=== PATIENT | male | born 1955 | race Caucasian/White ===

== ENCOUNTER → 2020-08-12 09:11 | Outpatient (BNVA) | payer MEDICARE, BC, SELFPAY | PROVIDERS: PCP Internal Medicine; Visit Provider Urology | DX: R97.21 Rising PSA following treatment for malignant neoplasm of prostate (principal); C61 Malignant neoplasm of prostate; N52.9 Male erectile dysfunction, unspecified | CPT/HCPCS: 99212 ==

== ENCOUNTER → 2021-02-10 08:49 | Outpatient (BNVA) | payer MEDICARE, BC, SELFPAY | PROVIDERS: PCP Internal Medicine; Visit Provider Urology | CPT/HCPCS: Q3014 ==

== ENCOUNTER → 2022-03-21 09:59 | Outpatient (BNVA) | payer MEDICARE, BC, SELFPAY | PROVIDERS: PCP Internal Medicine; Visit Provider Urology | DX: N32.0 Bladder-neck obstruction (principal); N52.9 Male erectile dysfunction, unspecified; R97.21 Rising PSA following treatment for malignant neoplasm of prostate; C61 Malignant neoplasm of prostate | CPT/HCPCS: 99212 ==

== ENCOUNTER → 2022-09-20 08:59 | Outpatient (BNVA) | payer MEDICARE, BC, SELFPAY | PROVIDERS: PCP Internal Medicine; Visit Provider Urology | DX: C61 Malignant neoplasm of prostate (principal); R97.21 Rising PSA following treatment for malignant neoplasm of prostate | CPT/HCPCS: Q3014 ==

== ENCOUNTER → 2023-01-16 14:59 | Outpatient (BNVA) | payer MEDICARE, BC, SELFPAY | PROVIDERS: PCP Internal Medicine; Visit Provider Urology | DX: N32.0 Bladder-neck obstruction (principal); C61 Malignant neoplasm of prostate; R97.21 Rising PSA following treatment for malignant neoplasm of prostate; N52.1 Erectile dysfunction due to diseases classified elsewhere | CPT/HCPCS: 99212 ==

== ENCOUNTER 2023-05-11 12:36 | Outpatient (REF) | payer MEDICARE, BC, SELFPAY ==
[2023-05-11 15:03] LABS: Prostate Specific Antigen 0.27 ng/mL (<0.05-4.0)
== END 2023-05-11 12:37 | disposition home or self-care (01) ==
LOC: HO.10HDL 12:36
PROVIDERS: Visit Provider Urology
DX: C61 Malignant neoplasm of prostate (principal); Z12.5 Encounter for screening for malignant neoplasm of prostate
CPT/HCPCS: 36415; 84153

== ENCOUNTER 2023-05-16 10:37 | Outpatient (AMB) | payer MEDICARE, BC, SELFPAY ==
--- NOTE | 2023-05-16 10:38 | A.OFFVIS_ITS ---
Intake Intake Visit Reasons: 4m/PSA(set) Intake Note: Patient is present for Telephone PSA Urology Med: NONE Antibiotic Allergy:NONE Blood Thinner:NONE [facility]: [facility] Allergies zolpidem [Ambien] Allergy (Unknown, Verified 05/16/23 10:38) unknown Medication List - Last Reconciled 05/16/23 by Josiah Olivas MD acetaminophen PO atorvastatin 20 mg PO DAILY escitalopram oxalate 3 mg PO Q OTHER DAY PRN escitalopram oxalate 20 mg PO DAILY HPI HPI Comments History of Present Illness Details Bob is a very pleasant male. He is a patient of Dr. Jefferson. He is seen for the following urologic conditions. - Prostate cancer - Bladder neck contraction - Erectile dysfunction - has progressive Alzheimer's Telemedicine Evaluation 15 min Consultation [employer] PSA 0.27 Continue to follow q4m Will need PSMA PET-CT scan Discussed Audelia for end of day dribbling Prostate cancer: Intermediate risk. Initial therapy radical prostatectomy 2013 Prostate cancer was diagnosed Dr Mayfield 2013. Diagnosis was reached by needle biopsy, for elevated PSA. The Elisa grade is 3+4 = 7, at surgery. TNM Classification of Malignant Tumours (TNM) T2b. The D'Keaton (NCCN) risk category is Intermediate Risk (PSA 10-20, Gl 7, T2) Initial therapy included Primary treatment, Prostatectomy (RRP/Robotic), Additional treatment, Observation. Recent labs included a PSA (prostate-specific antigen) 11/30 < 0.1 12/01 < 0.1, 05/31 < 0.1, 11/02 < 0.1, 11/03 0.1, 08/03 0.1, 01/02 0.11, 04/05 0.1, 09/05 0.2, 01/04 0.2, 05/06 0.27 Associated conditions erectile dysfunction Yes Erectile DESHAUN Score 12 Therapeutic plan: Continue with surveillance Urethral Strictures: Urination effective. The stricture was diagnosed Oct 2014. Bladder neck contracture incised [facility] Medical History Atrial fibrillation Colonic polyp Erectile dysfunction History of kidney stones Hyperlipidemia Mitral valve regurgitation Prostate cancer Urethral stricture Surgical History History of surgery Review of Systems Const All systems reviewed & are unremarkable except as noted in HPI and below Reports no additional complaints Resp Reports no additional complaints GI Reports no additional complaints Reports as per HPI Musc Reports no additional complaints Physical Exam Telemedicine evaluation Appropriate responses Regular breathing rate and rhythm HEENT Head: Yes normal to inspection Ears: hearing grossly normal bilaterally Eyes General: appearance normal, both eyes and all related structures Neck Neck: Yes normal visual inspection Chest Chest palpation & inspection: normal inspection of the chest Resp Effort & Inspection: normal respiratory effort and able to speak in complete sentences Assessment & Plan Assessment & Plan (1) Rising PSA following treatment for malignant neoplasm of prostate: Comment: 0.1 Code(s): R97.21 - Rising PSA following treatment for malignant neoplasm of prostate (2) Prostate cancer: Comment: [facility] 2006 Code(s): C61 - Malignant neoplasm of prostate Plan 4m f/u PSA tele Orders: Orders Prostate Specific Antigen 4 Months R97.21 - Rising PSA following treatment for malignant neoplasm of prostate Patient Instructions: Imaging studies, laboratory and physical exam results were discussed and reviewed in detail. No major barriers to patient understanding were identified. An opportunity to ask questions regarding the treatment plan was provided. All questions were answered. The patient expressed understanding and agreement with the above treatment plan. The patient is aware they should contact our office by phone for worsening of their current condition or the appearance of new urologic symptoms. Compliance is encouraged with any medications and followup testing that is ordered. It is a privilege to participate in the urologic care of your patient. If you have any questions or concerns regarding treatment for the above conditions, or other urologic issues, please do not hesitate to contact me. The office telephone contact is [phone]. This note is constructed using voice recognition software. While every effort has been made to ensure accuracy blast furnace tender errors may have been included. Yours sincerely, Dr Josiah Olivas MD, [facility] - Urology Providers of Expert, Compassionate Care for the Genitourinary System Telehealth Telehealth Location of provider rendering services: practice address Location of patient: address on file Patient Identification confirmed using: Name, : Yes Telehealth method: video Patient verbally consented to treatment: Yes Patient verbally consented to billing insurance company: Yes Patient informed of any privacy concerns related to visit: Yes Coding Level of Care Code Tele Est Pt Level 3 (41941) Diagnoses Rising PSA following treatment for malignant neoplasm of prostate R97.21 Prostate cancer C61
== END 2023-05-16 11:27 | disposition home or self-care (01) ==
LOC: HO.HUSH 10:37
PROVIDERS: PCP Internal Medicine; Visit Provider Urology
DX: R97.21 Rising PSA following treatment for malignant neoplasm of prostate (principal); C61 Malignant neoplasm of prostate
CPT/HCPCS: 99213

== ENCOUNTER → 2023-05-16 10:37 | Outpatient (BNVA) | payer MEDICARE, BC, SELFPAY | PROVIDERS: PCP Internal Medicine; Visit Provider Urology | DX: C61 Malignant neoplasm of prostate (principal); R97.21 Rising PSA following treatment for malignant neoplasm of prostate; N32.0 Bladder-neck obstruction; N52.1 Erectile dysfunction due to diseases classified elsewhere; Z90.79 Acquired absence of other genital organ(s) | CPT/HCPCS: Q3014 ==

== ENCOUNTER 2023-09-12 10:58 | Outpatient (REF) | payer MEDICARE, BC, SELFPAY ==
[2023-09-12 14:20] LABS: Prostate Specific Antigen 0.36 ng/mL (<0.05-4.0)
== END 2023-09-12 10:59 | disposition home or self-care (01) ==
LOC: HO.10HDL 10:58
PROVIDERS: Visit Provider Urology
DX: Z12.5 Encounter for screening for malignant neoplasm of prostate (principal); R97.21 Rising PSA following treatment for malignant neoplasm of prostate
CPT/HCPCS: 36415; 84153

== ENCOUNTER 2023-09-18 11:40 | Outpatient (AMB) | payer MEDICARE, BC, SELFPAY ==
--- NOTE | 2023-09-18 11:52 | MHC.OFFVIS ---
Intake Intake Visit Reasons: 4m/PSA(set) Intake Note: Patient is Present for Follow Up PSA Urology Medication: None Antibiotic Allergies:None Blood Thinners: None Allergies zolpidem [Ambien] Allergy (Unknown, Verified 05/16/23 10:38) unknown HPI HPI Comments History of Present Illness Details Bob is a very pleasant male. He is a patient of Dr. Jefferson. He is seen for the following urologic conditions. - Prostate cancer - Bladder neck contraction - Erectile dysfunction - has progressive Alzheimer's PSA 0.36 Continuing to rise Recommend therapy Lives in [place] Can receive therapy through [facility]. They have an office in [place]. Dr Juarez. He is primary caregiver for his with Alzheimer's Discussed Audelia for end of day drmariya Prostate cancer: Intermediate risk. Initial therapy radical prostatectomy 2013 Prostate cancer was diagnosed Dr Mayfield 2013. Diagnosis was reached by needle biopsy, for elevated PSA. The Auburn grade is 3+4 = 7, at surgery. TNM Classification of Malignant Tumours (TNM) T2b. The D'Keaton (NCCN) risk category is Intermediate Risk (PSA 10-20, Gl 7, T2) Initial therapy included Primary treatment, Prostatectomy (RRP/Robotic), Additional treatment, Observation. Recent labs included a PSA (prostate-specific antigen) 11/30 < 0.1 12/01 < 0.1, 05/31 < 0.1, 11/02 < 0.1, 11/03 0.1, 08/03 0.1, 01/02 0.11, 04/05 0.1, 09/05 0.2, 01/04 0.2, 05/06 0.27. 09/06 0.36 Associated conditions erectile dysfunction Yes Erectile DESHAUN Score 12 Therapeutic plan: Continue with surveillance Urethral Strictures: Urination effective. The stricture was diagnosed Oct 2014. Bladder neck contracture incised [facility] Medical History Atrial fibrillation Colonic polyp Erectile dysfunction History of kidney stones Hyperlipidemia Mitral valve regurgitation Prostate cancer Urethral stricture Surgical History History of surgery Review of Systems Const Denies chills and Denies fever(s) Card Reports no additional complaints and Denies syncope Resp Denies cough GI Denies abdominal pain and Denies heartburn Reports as per HPI and Denies change in libido Neuro Denies syncope Psych Denies change in libido Endo Denies change in libido Physical Exam Const General: cooperative, healthy appearing, comfortable and no acute distress Orientation/consciousness: patient oriented x3 HEENT Face and sinus: Yes normal facial exam Mouth: moist mucous membranes Neck Neck: Yes normal visual inspection, Yes full ROM and Yes trachea midline Chest Chest palpation & inspection: normal inspection of the chest Resp Effort & Inspection: normal respiratory effort, able to speak in complete sentences and no respiratory distress GI Inspection: Yes normal to inspection Back/Spine/Pelvis Cervical Spine: normal cervical lordosis Thoracic/Lumbar Spine: thoracic and lumbar spine normal to inspection Skin General skin exam: no rashes or lesions noted Neuro General: patient oriented x3, gait normal, tone normal and moves all extremities Extrem General: Yes normal to inspection and Yes capillary refill normal Assessment & Plan Assessment & Plan (1) Biochemically recurrent castration-sensitive adenocarcinoma of prostate: Code(s): C61 - Malignant neoplasm of prostate; R97.21 - Rising PSA following treatment for malignant neoplasm of prostate; Z19.1 - Hormone sensitive malignancy status Plan Salvage radiation GnRH injection for Elisa 7 disease short term Referral to Radiation Oncology - [place] [facility] Orders: Referrals Radiation Oncology Referral C61 - Malignant neoplasm of prostate Patient Instructions: Imaging studies, laboratory and physical exam results were discussed and reviewed in detail. No major barriers to patient understanding were identified. An opportunity to ask questions regarding the treatment plan was provided. All questions were answered. The patient expressed understanding and agreement with the above treatment plan. The patient is aware they should contact our office by phone for worsening of their current condition or the appearance of new urologic symptoms. Compliance is encouraged with any medications and followup testing that is ordered. It is a privilege to participate in the urologic care of your patient. If you have any questions or concerns regarding treatment for the above conditions, or other urologic issues, please do not hesitate to contact me. The office telephone contact is [phone]. This note is constructed using voice recognition software. While every effort has been made to ensure accuracy assistant guest services manager errors may have been included. Yours sincerely, Dr Josiah Olivas MD, [facility] - Urology Providers of Expert, Compassionate Care for the Genitourinary System Coding Level of Care Code Est Pt Level 4 (20121) Diagnoses Biochemically recurrent castration-sensitive adenocarcinoma of prostate C61; R97.21; Z19.1
== END 2023-09-18 12:16 | disposition home or self-care (01) ==
PROVIDERS: PCP Internal Medicine; Visit Provider Urology
DX: C61 Malignant neoplasm of prostate (principal); R97.21 Rising PSA following treatment for malignant neoplasm of prostate; Z19.1 Hormone sensitive malignancy status
CPT/HCPCS: 99214

== ENCOUNTER → 2023-09-18 11:40 | Outpatient (BNVA) | payer MEDICARE, BC, SELFPAY | PROVIDERS: PCP Internal Medicine; Visit Provider Urology | DX: C61 Malignant neoplasm of prostate (principal); R97.21 Rising PSA following treatment for malignant neoplasm of prostate; Z19.1 Hormone sensitive malignancy status; N52.1 Erectile dysfunction due to diseases classified elsewhere; N32.0 Bladder-neck obstruction | CPT/HCPCS: 99212 ==

== ENCOUNTER 2023-10-03 08:50 | Outpatient (AMB) | payer MEDICARE, BC, SELFPAY ==
--- NOTE | 2023-10-03 08:59 | AM.OFFVISNUR ---
Intake Intake Visit Reasons: [facility](No PA Needed) Allergies zolpidem [Ambien] Allergy (Unknown, Verified 05/16/23 10:38) unknown Office Meds Eligard (6 month) 45 mg (6 month) subcutaneous syringe Performing Provider: Josiha Olivas MD [facility] Administered by: Ingrid Dye RN on 10/03/23 08:59 Dose Route Admin Location Dispensed Lot Number Expiration Date [facility] Digital Strategist Senior Manager 45 mg subcut left arm 45 mg [id number] 10/15/24 79408-614-82 [employer]. Coding Assessment & Plan Assessment & Plan Orders: Orders AMB Leuprolide Injection - Practice Supplied Today C61 - Malignant neoplasm of prostate
== END 2023-10-03 09:07 | disposition home or self-care (01) ==
PROVIDERS: PCP Internal Medicine; Visit Provider Urology
DX: C61 Malignant neoplasm of prostate (principal)

== ENCOUNTER → 2023-10-03 08:50 | Outpatient (BNVA) | payer MEDICARE, OTHER, BC, SELFPAY | PROVIDERS: PCP Internal Medicine; Visit Provider Urology | DX: C61 Malignant neoplasm of prostate (principal) | CPT/HCPCS: 96402; J9217 ==

== ENCOUNTER 2023-12-20 10:31 | Outpatient (AMB) | payer MEDICARE, BC, SELFPAY ==
--- NOTE | 2023-12-20 10:49 | A.OFFVIS_ITS ---
Intake Intake Visit Reasons: 3M(Radiation-23 Treatments)Confirmed Intake Note: Patient presents today for a follow-up on radiation treatments Meds- None Allergies to Antibiotic- No Known Allergies Blood Thinner- None Buying Agent Required: No Accompanied by: Self / Same As Patient Allergies zolpidem [Ambien] Allergy (Unknown, Verified 12/20/23 10:50) unknown Medication List - Last Reconciled 12/20/23 by Josiah Olivas MD acetaminophen PO atorvastatin 20 mg PO DAILY escitalopram oxalate 3 mg PO Q OTHER DAY PRN escitalopram oxalate 20 mg PO DAILY gabapentin 300 mg PO BEDTIME 30 days HPI HPI Comments History of Present Illness Details Bob is a very pleasant male. He is a patient of Dr. Jefferson. He is seen for the following urologic conditions. - Prostate cancer - Bladder neck contraction - Erectile dysfunction - has progre ssive Alzheimer's Receiving therapy through [facility]. They have an office in [place]. Dr Juarez. Have 2 weeks left in external beam radiation Starting to have some urinary urgency and frequency Offered alpha-onel He will only need a single GnRH shot Three-month follow-up lab work [facility] 10/06 Prostate cancer: Intermediate risk. Initial therapy radical prostatectomy 2013 Prostate cancer was diagnosed Dr Mayfield 2013. Diagnosis was reached by needle biopsy, for elevated PSA. The Elisa grade is 3+4 = 7, at surgery. TNM Classification of Malignant Tumours (TNM) T2b. The D'Keaton (NCCN) risk category is Intermediate Risk (PSA 10-20, Gl 7, T2) Initial therapy included Primary treatment, Prostatectomy (RRP/Robotic), Additional treatment, Observation. Recent labs included a PSA (prostate-specific antigen) 11/30 < 0.1 12/01 < 0.1, 05/31 < 0.1, 11/02 < 0.1, 11/03 0.1, 08/03 0.1, 01/02 0.11, 04/05 0.1, 11/22 0.2, 01/04 0.2, 05/06 0.27. 09/06 0.36 Associated conditions erectile dysfunction Yes Erectile DESHAUN Score 12 Therapeutic plan: Continue with surveillance Urethral Strictures: Urination effective. The stricture was diagnosed Oct 2014. Bladder neck contracture incised [facility] Medical History History of kidney stones Atrial fibrillation Colonic polyp Mitral valve regurgitation Hyperlipidemia Erectile dysfunction Urethral stricture Prostate cancer Surgical History History of surgery Review of Systems Const Denies chills and Denies fever(s) Card Reports no additional complaints and Denies syncope Resp Denies cough GI Denies abdominal pain and Denies heartburn Reports as per HPI and Denies change in libido Neuro Denies syncope Psych Denies change in libido Endo Denies change in libido Physical Exam Const General: cooperative, healthy appearing, comfortable and no acute distress Orientation/consciousness: patient oriented x3 HEENT Face and sinus: Yes normal facial exam Mouth: moist mucous membranes Neck Neck: Yes normal visual inspection, Yes full ROM and Yes trachea midline Chest Chest palpation & inspection: normal inspection of the chest Resp Effort & Inspection: normal respiratory effort, able to speak in complete sentences and no respiratory distress GI Inspection: Yes normal to inspection Back/Spine/Pelvis Cervical Spine: normal cervical lordosis Thoracic/Lumbar Spine: thoracic and lumbar spine normal to inspection Skin General skin exam: no rashes or lesions noted Neuro General: patient oriented x3, gait normal, tone normal and moves all extremities Extrem General: Yes normal to inspection and Yes capillary refill normal Assessment & Plan Assessment & Plan (1) Biochemically recurrent castration-sensitive adenocarcinoma of prostate: Code(s): C61 - Malignant neoplasm of prostate; R97.21 - Rising PSA following treatment for malignant neoplasm of prostate; Z19.1 - Hormone sensitive malignancy status (2) Prostate cancer: Comment: [facility] 2006 Code(s): C61 - Malignant neoplasm of prostate Plan Three-month follow-up labs Orders: Orders Prostate Specific Antigen 3 Months C61 - Malignant neoplasm of prostate, R97.21 - Rising PSA following treatment for malignant neoplasm of prostate, Z19.1 - Hormone sensitive malignancy status Patient Instructions: Imaging studies, laboratory and physical exam results were discussed and reviewed in detail. No major barriers to patient understanding were identified. An opportunity to ask questions regarding the treatment plan was provided. All questions were answered. The patient expressed understanding and agreement with the above treatment plan. The patient is aware they should contact our office by phone for worsening of their current condition or the appearance of new urologic symptoms. Compliance is encouraged with any medications and followup testing that is ordered. It is a privilege to participate in the urologic care of your patient. If you have any questions or concerns regarding treatment for the above conditions, or other urologic issues, please do not hesitate to contact me. The office telephone contact is [phone]. This note is constructed using voice recognition software. While every effort has been made to ensure accuracy insulation worker apprentice errors may have been included. Yours sincerely, Dr Josiah Olivas MD, [facility] - Urology Providers of Expert, Compassionate Care for the Genitourinary System Coding Level of Care Code Est Pt Level 3 (91844) Diagnoses Biochemically recurrent castration-sensitive adenocarcinoma of prostate C61; R97.21; Z19.1 Prostate cancer C61
== END 2023-12-20 11:20 | disposition home or self-care (01) ==
PROVIDERS: PCP Internal Medicine; Visit Provider Urology
DX: C61 Malignant neoplasm of prostate (principal); R97.21 Rising PSA following treatment for malignant neoplasm of prostate; Z19.1 Hormone sensitive malignancy status
CPT/HCPCS: 99213

== ENCOUNTER → 2023-12-20 10:31 | Outpatient (BNVA) | payer MEDICARE, BC, SELFPAY | PROVIDERS: PCP Internal Medicine; Visit Provider Urology | DX: C61 Malignant neoplasm of prostate (principal); R97.21 Rising PSA following treatment for malignant neoplasm of prostate; Z19.1 Hormone sensitive malignancy status | CPT/HCPCS: 99212 ==

== ENCOUNTER 2024-02-08 10:35 | Outpatient (REF) | payer MEDICARE, BC, SELFPAY ==
[2024-02-08 12:49] LABS: Prostate Specific Antigen < 0.10 ng/mL (<0.05-4.0)
== END 2024-02-08 10:36 | disposition home or self-care (01) ==
LOC: HO.10HDL 10:35
PROVIDERS: Visit Provider Radiology Therapeutic Radiology
DX: C61 Malignant neoplasm of prostate (principal); Z12.5 Encounter for screening for malignant neoplasm of prostate
CPT/HCPCS: 36415; 84153

== ENCOUNTER 2024-04-07 12:56 | Outpatient (REF) | payer MEDICARE, BC, SELFPAY ==
[2024-04-07 14:22] LABS: Prostate Specific Antigen < 0.10 ng/mL (<0.05-4.0)
== END 2024-04-07 12:57 | disposition home or self-care (01) ==
LOC: HO.10HDL 12:56
PROVIDERS: Visit Provider Urology
DX: C61 Malignant neoplasm of prostate (principal); R97.21 Rising PSA following treatment for malignant neoplasm of prostate; Z19.1 Hormone sensitive malignancy status; Z12.5 Encounter for screening for malignant neoplasm of prostate
CPT/HCPCS: 36415; 84153

== ENCOUNTER 2024-04-11 09:23 | Outpatient (AMB) | payer MEDICARE, BC, SELFPAY ==
--- NOTE | 2024-04-11 09:19 | MHC.OFFVIS ---
Intake Visit Reasons: 3m/PSA(set) Intake Note: Patient is present for 3 month f/u and PSA Urology Medication:gabapentin Antibiotic Allergy:none Blood Thinner:none Housekeeping/Laundry Required: No Allergies zolpidem [Ambien] Allergy (Unknown, Verified 04/11/24 09:20) unknown Medication List - Last Reconciled 04/11/24 by Josiah Olivas MD acetaminophen PO atorvastatin 20 mg PO DAILY escitalopram oxalate 3 mg PO Q OTHER DAY PRN escitalopram oxalate 20 mg PO DAILY gabapentin 300 mg PO BEDTIME 90 days HPI Comments Details: Bob is a very pleasant male. He is a patient of Dr. Jefferson. He is seen for the following urologic conditions. - Prostate cancer - Bladder neck contraction - Erectile dysfunction - has progressive Alzheimer's Telemedicine Evaluation 15 min Consultation test company [employer] Video attempted Discussed lab results. Reading is undetectable. Will check ultrasensitive in 3 months. Joseluis did say he would coughed up phlegm with blood recently. Encouraged to follow-up with primary care. 04/07 - Completed external beam radiation through [facility] at [place] with Dr Juarez PSA <0.1 GnRH 10/06 Prostate cancer: Intermediate risk. Initial therapy radical prostatectomy 2013 Prostate cancer was diagnosed Dr Mayfield 2013. Diagnosis was reached by needle biopsy, for elevated PSA. The Elisa grade is 3+4 = 7, at surgery. TNM Classification of Malignant Tumours (TNM) T2b. The D'Keaton (NCCN) risk category is Intermediate Risk (PSA 10-20, Gl 7, T2) Initial therapy included Primary treatment, Prostatectomy (RRP/Robotic), Additional treatment, Observation. Recent labs included a PSA (prostate-specific antigen) 11/30 < 0.1 12/01 < 0.1, 05/31 < 0.1, 11/02 < 0.1, 11/03 0.1, 08/03 0.1, 01/02 0.11, 04/05 0.1, 09/05 0.2, 01/04 0.2, 05/06 0.27. 09/06 0.36 Associated conditions erectile dysfunction Yes Erectile DESHAUN Score 12 Therapeutic plan: Continue with surveillance Urethral Strictures: Urination effective. The stricture was diagnosed Oct 2014. Bladder neck contracture incised [facility] Medical History History of kidney stones Atrial fibrillation Colonic polyp Mitral valve regurgitation Hyperlipidemia Erectile dysfunction Urethral stricture Prostate cancer Surgical History History of surgery Review of Systems Const All systems reviewed & are unremarkable except as noted in HPI and below Reports no additional complaints Resp Reports no additional complaints GI Reports no additional complaints Reports as per HPI Musc Reports no additional complaints Physical Exam Telemedicine evaluation Appropriate responses Regular breathing rate and rhythm HEENT Head: Yes normal to inspection Ears: hearing grossly normal bilaterally Eyes General: appearance normal, both eyes and all related structures Neck Neck: Yes normal visual inspection Chest Chest palpation & inspection: normal inspection of the chest Resp Effort & Inspection: normal respiratory effort and able to speak in complete sentences Telehealth Telehealth Location of provider rendering services: practice address Location of patient: address on file Patient Identification confirmed using: Name, : Yes Telehealth method: voice only Patient verbally consented to treatment: Yes Patient verbally consented to billing insurance company: Yes Patient informed of any privacy concerns related to visit: Yes Assessment & Plan Assessment & Plan (1) Prostate cancer: Comment: [facility] 2006 Code(s): C61 - Malignant neoplasm of prostate Category: Medical (2) Biochemically recurrent castration-sensitive adenocarcinoma of prostate: Code(s): C61 - Malignant neoplasm of prostate; R97.21 - Rising PSA following treatment for malignant neoplasm of prostate; Z19.1 - Hormone sensitive malignancy status Category: Medical Plan Three-month follow-up ultrasound answered PSA Orders: Orders PSA, Ultra Sensitive 3 Months C61 - Malignant neoplasm of prostate Patient Instructions: Imaging studies, laboratory and physical exam results were discussed and reviewed in detail. No major barriers to patient understanding were identified. An opportunity to ask questions regarding the treatment plan was provided. All questions were answered. The patient expressed understanding and agreement with the above treatment plan. The patient is aware they should contact our office by phone for worsening of their current condition or the appearance of new urologic symptoms. Compliance is encouraged with any medications and followup testing that is ordered. It is a privilege to participate in the urologic care of your patient. If you have any questions or concerns regarding treatment for the above conditions, or other urologic issues, please do not hesitate to contact me. The office telephone contact is [phone]. This note is constructed using voice recognition software. While every effort has been made to ensure accuracy bath mix operator errors may have been included. Yours sincerely, Dr Josiah Olivas MD, [facility] - Urology Providers of Expert, Compassionate Care for the Genitourinary System Coding Level of Care Code Tele Est Pt Level 3 (94920) Complex EM visit Add On G2211 Diagnoses Prostate cancer C61 Biochemically recurrent castration-sensitive adenocarcinoma of prostate C61; R97.21; Z19.1
== END 2024-04-11 10:05 | disposition home or self-care (01) ==
LOC: HO.HUSH 09:23
PROVIDERS: PCP Internal Medicine; Visit Provider Urology
DX: C61 Malignant neoplasm of prostate (principal); R97.21 Rising PSA following treatment for malignant neoplasm of prostate; Z19.1 Hormone sensitive malignancy status
CPT/HCPCS: 99442

== ENCOUNTER → 2024-04-11 09:23 | Outpatient (BNVA) | payer MEDICARE, BC, SELFPAY | PROVIDERS: PCP Internal Medicine; Visit Provider Urology ==

== ENCOUNTER 2024-07-02 09:35 | Outpatient (REF) | payer MEDICARE, BC, SELFPAY ==
[2024-07-09 16:17] LABS: PSA, Ultra Sensitive <0.02 ng/mL
== END 2024-07-02 09:36 | disposition home or self-care (01) ==
LOC: HO.10HDL 09:35
PROVIDERS: Visit Provider Urology
DX: Z12.5 Encounter for screening for malignant neoplasm of prostate (principal); C61 Malignant neoplasm of prostate
CPT/HCPCS: 36415; 84153

== ENCOUNTER 2024-07-11 11:48 | Outpatient (AMB) | payer MEDICARE, BC, SELFPAY ==
--- NOTE | 2024-07-11 11:50 | MHC.OFFVIS ---
Intake Visit Reasons: 3M Follow Up- PSA(pending) Intake Note: Patient is present for 3m f/u psa Urology Medication:none Antibiotic Allergy:none Blood Thinner:none Research Assoc Required: No Allergies zolpidem [Ambien] Allergy (Unknown, Verified 07/11/24 11:51) unknown Medication List - Last Reconciled 07/11/24 by Josiah Olivas MD acetaminophen PO atorvastatin 20 mg PO DAILY escitalopram oxalate 3 mg PO Q OTHER DAY PRN escitalopram oxalate 20 mg PO DAILY HPI Comments Details: Bob is a very pleasant male. He is a patient of Dr. Jefferson. He is seen for the following urologic conditions. - Prostate cancer - initial prostatectomy 2013, salvage radiation 2023 - Bladder neck contraction - Erectile dysfunction - has progressive Alzheimer's 07/08 PSA <0.02 ultrasensitive PSA nondetectable 04/07 - Completed external beam radiation through [facility] [place] with Dr Juarez PSA <0.1 GnRH 10/06 Prostate cancer: Intermediate risk. Initial therapy radical prostatectomy 2013 Prostate cancer was diagnosed Dr Mayfield 2013. Diagnosis was reached by needle biopsy, for elevated PSA. The Elisa grade is 3+4 = 7, at surgery. TNM Classification of Malignant Tumours (TNM) T2b. The D'Keaton (NCCN) risk category is Intermediate Risk (PSA 10-20, Gl 7, T2) Initial therapy included Primary treatment, Prostatectomy (RRP/Robotic), Additional treatment, Observation. Recent labs included a PSA (prostate-specific antigen) 11/30 < 0.1 12/01 < 0.1, 05/31 < 0.1, 11/02 < 0.1, 11/03 0.1, 08/03 0.1, 01/02 0.11, 04/05 0.1, 09/05 0.2, 01/04 0.2, 05/06 0.27. 09/06 0.36 Associated conditions erectile dysfunction Yes Erectile DESHAUN Score 12 Therapeutic plan: Continue with surveillance Urethral Strictures: Urination effective. The stricture was diagnosed Oct 2014. Bladder neck contracture incised [facility] Medical History History of kidney stones Atrial fibrillation Colonic polyp Mitral valve regurgitation Hyperlipidemia Erectile dysfunction Urethral stricture Prostate cancer Surgical History History of surgery Review of Systems Const Denies chills and Denies fever(s) Card Reports no additional complaints and Denies syncope Resp Denies cough GI Denies abdominal pain and Denies heartburn Reports as per HPI and Denies change in libido Neuro Denies syncope Psych Denies change in libido Endo Denies change in libido Physical Exam Const General: cooperative, healthy appearing, comfortable and no acute distress Orientation/consciousness: patient oriented x3 HEENT Face and sinus: Yes normal facial exam Mouth: moist mucous membranes Neck Neck: Yes normal visual inspection, Yes full ROM and Yes trachea midline Chest Chest palpation & inspection: normal inspection of the chest Resp Effort & Inspection: normal respiratory effort, able to speak in complete sentences and no respiratory distress GI Inspection: Yes normal to inspection Back/Spine/Pelvis Cervical Spine: normal cervical lordosis Thoracic/Lumbar Spine: thoracic and lumbar spine normal to inspection Skin General skin exam: no rashes or lesions noted Neuro General: patient oriented x3, gait normal, tone normal and moves all extremities Extrem General: Yes normal to inspection and Yes capillary refill normal Assessment & Plan Assessment & Plan (1) Biochemically recurrent castration-sensitive adenocarcinoma of prostate: Code(s): C61 - Malignant neoplasm of prostate; R97.21 - Rising PSA following treatment for malignant neoplasm of prostate; Z19.1 - Hormone sensitive malignancy status Category: Medical Plan Six-month follow-up PSA Orders: Orders PSA, Ultra Sensitive 6 Months C61 - Malignant neoplasm of prostate, R97.21 - Rising PSA following treatment for malignant neoplasm of prostate, Z19.1 - Hormone sensitive malignancy status Patient Instructions: Imaging studies, laboratory and physical exam results were discussed and reviewed in detail. No major barriers to patient understanding were identified. An opportunity to ask questions regarding the treatment plan was provided. All questions were answered. The patient expressed understanding and agreement with the above treatment plan. The patient is aware they should contact our office by phone for worsening of their current condition or the appearance of new urologic symptoms. Compliance is encouraged with any medications and followup testing that is ordered. It is a privilege to participate in the urologic care of your patient. If you have any questions or concerns regarding treatment for the above conditions, or other urologic issues, please do not hesitate to contact me. The office telephone contact is [phone]. This note is constructed using voice recognition software. While every effort has been made to ensure accuracy fire prevention captain errors may have been included. Yours sincerely, Dr Josiah Olivas MD, [facility] - Urology Providers of Expert, Compassionate Care for the Genitourinary System Coding Level of Care Code Est Pt Level 3 (40207) Diagnoses Biochemically recurrent castration-sensitive adenocarcinoma of prostate C61; R97.21; Z19.1
== END 2024-07-11 12:08 | disposition home or self-care (01) ==
PROVIDERS: PCP Internal Medicine; Visit Provider Urology
DX: C61 Malignant neoplasm of prostate (principal); R97.21 Rising PSA following treatment for malignant neoplasm of prostate; Z19.1 Hormone sensitive malignancy status
CPT/HCPCS: 99213

== ENCOUNTER → 2024-07-11 11:48 | Outpatient (BNVA) | payer MEDICARE, BC, SELFPAY | PROVIDERS: PCP Internal Medicine; Visit Provider Urology | DX: C61 Malignant neoplasm of prostate (principal); R97.21 Rising PSA following treatment for malignant neoplasm of prostate; Z19.1 Hormone sensitive malignancy status | CPT/HCPCS: 99212 ==

== ENCOUNTER 2024-12-25 10:23 | Outpatient (REF) | payer MEDICARE, BC, SELFPAY ==
--- OUTSIDE RECORDS SUMMARY | 2024-12-25 12:58 | XMS_ITS | Encounter Summary ---
Author Organization [facility] Address [address] [place] [address] Care Team Providers Care Middle [employer] Sports Coach Name Role Phone Dav Jefferson MD Primary Care Provider [phone] Encounter Details Date Type Department Care Team (Late st Contact Info) Description 01/09/2024 Scanned Document [facility], [address] [place] [id number] Dav Jefferson MD [address] [place] [address] Social History Tobacco Use Types Packs/Day Years Used Date Smoking Tobacco: Never Smokeless Tobacco: Never Alcohol Use Standard Drinks/Week Comments Yes 6 (1 standard drink = 0.6 oz pur e alcohol) Sex and Gender Information Value Date Recorded Sex Assigned at Not on file Gender Identity Not on file Sexual Orientation Not on file documented as of this encounter Plan of Treatment Not on file documented as of this encounter Visit Diagnoses Not on filedocumented in this encounter Care Teams Middle [employer] Sports Coach Relationship Specialty Start Date End Date Dav Jefferson MD [address] [place] [id number] PCP - General Internal Medicine 03/14/18 documented as of this encounter
--- OUTSIDE RECORDS SUMMARY | 2024-12-25 12:58 | XMS_ITS | Encounter Summary ---
Author Organization [facility] Address [address] [place] [address] Care Team Providers Care Surgical Processor Name Role Phone Dav Jefferson MD Primary Care Provider [phone] Encounter Details Date Type Department Care Team (Late st Contact Info) Description 02/08/2024 Scanned Document [facility] [address] [place] [address] Provider, [place], [address] [place], [place] [id number] Social History Tobacco Use Types Packs/Day Years [...] on filedocumented in this encounter Care Teams Surgical Processor Relationship Specialty Start Date End Date Dav Jefferson MD [address] [place] [address] PCP - General Internal Medicine 03/14/18 documented as of this encounter
--- OUTSIDE RECORDS SUMMARY | 2024-12-25 12:58 | XMS_ITS | Encounter Summary ---
Author Organization [facility] Address [address] [place] [address] Care Team Providers Care Technical Project Lead Name Role Phone Dav Jefferson MD Primary Care Provider [phone] Reason for Visit * Reason Onset Date Comments eliquis 12/12/2024 eliquis Encounter Details Date Type Department Care Team (Late st Contact Info) Description 12/12/2024 Telephone [facility] [address] [facility] [address] [place] [address] Marco Gomez MD [address] [facility] [address] [place] [address] eliquis (eliquis) Social History Tobacco Use Types Packs/Day Years Used Date Smoking Tobacco: Never Smokeless Tobacco: Never Alcohol Use Standard Drinks/Week Comments Yes 7 (1 standard drink = 0.6 oz pur e alcohol) Sex and Gender Information Value Date Recorded Sex Assigned at Not on file Legal Sex Male 2:07 PM EST Gender Identity Not on file Sexual Orientation Not on file documented as of this encounter Progress Notes * Eva Baum MA - 12/15/2024 1:17 PM EST Called patient and he stated that he picked up his prescription and doesn't need samples anymore. He also wanted to make note that he was periodically stressed while wearing his heart monitor because he got a flat tire on the way home and was nervous about possibly needing a pacemaker. * Negrita De Luna RN - 12/12/2024 2:55 PM EST Called pt back this PM. Made aware we could provide samples of Eliquis to tide him over as he follows up with insurance to see if he has to meet a deductible/can have a more economic alternative medication that would be covered (Pradaxa, Xarelto, Coumadin - made aware this would require frequent blood monitoring). States he will arjun his insurance company today and is aware to call back next week with update. Zahida/Eva - do we have any samples of Eliquis 5mg BID to provide this pt to bulk picker today? * Myra Callahan - 12/12/2024 11:15 AM EST Bob had a an office visit with Dr. Gomez today who had prescribed Eliquis, The medication cost $546.00 . Is there anything else Pao documented in this encounter Plan of Treatment Upcoming Encounters Date Type Department Care Team (Late st Contact Info) Description 01/01/2025 1:30 PM EDT Ancillary Procedure [facility] Cardiology [facility] [address] [place] [address] 01/20/2025 11:20 AM EDT Office Visit [facility] [address] [place] [address] Marco Gomez MD [address] [place] [address] documented as of this encounter Visit Diagnoses Not on filedocumented in this encounter Care Teams Technical Project Lead Relationship Specialty Start Date End Date Dav Jefferson MD [address] [place] [address] PCP - General Internal Medicine 12/12/24 documented as of this encounter
--- OUTSIDE RECORDS SUMMARY | 2024-12-25 12:58 | XMS_ITS | Encounter Summary ---
Author Organization [facility] Address [address] [place] [address] Care Team Providers Care Sdc Teacher Name Role Phone Dav Jefferson MD Primary Care Provider [phone] Reason for Visit * Reason Comments 24 Hour Holter Monitor * Cardiac Stress Testing (Routine) - Closed Specialty Diagnoses / Procedures Referred By Contac t Referred To Contact Cardiology Diagnoses Atypical atrial flutter (CMS/HCC) Procedures Cardiac holter monitor (<= 48 hours) DC ECG EXTERNAL UP TO 48 HOURS RECORDING DC ECG EXTERNAL < 48 HOURS CONTINUOUS RECORDING/STORAGE R&I BY A PHYS/QHP DC EXTERNAL ECG UP TO 48 HRS INCL RECORDING SCANNING ANLYS W REPORT Marco Gomez MD [address] [place] [address] Phone: tel: fax: [facility] Referral ID Status Reason Start Date Expiration Date Visits Re quested Visits Authorized [id number] Closed 12/12/2024 12/12/2025 1 1 Encounter Details Date Type Department Care Team (Latest Contact Info) Description 12/12/2024 9:30 AM EST Ancillary Procedure [facility] - [address] [place] [address] Atypical atrial flutter (CMS/HCC) Social History Tobacco Use Types Packs/Day Years [...] as of this encounter Plan of Treatment Upcoming Encounters Date Type Department Care Team (Late st Contact Info) Description 01/01/2025 1:30 PM EDT Ancillary Procedure [facility] [address] [place] [address] 01/20/2025 11:20 AM EDT Office Visit [facility] [address] [place] [address] Marco Gomez MD [address] [place] [address] documented as of this encounter Procedures Procedure Name Priority Date/Time Associated Diagnosis Comments CARDIAC HOLTER MONITOR (REPORT GENERATED IN HOUSE) Routine 12/12/2024 8:45 AM EST Atypical atrial flutter (CMS/HCC) documented in this encounter Results * CARDIAC HOLTER MONITOR (REPORT GENERATED IN HOUSE) (12/12/2024 8:45 AM EST) Anatomical Region Laterality Modality Cardiac Diagnost ic Narrative 12/15/2024 7:24 PM EST ?Persistent atrial fibrillation with elevated average heart rate in the 109 bpm. [facility] [address] [facility], [id number], [place] [address] TEL: FAX: Type of Test: 24 Hour Holter Monitor Date of Test: 12/12/2024 Ordering Provider: Marco Gomez MD Reason for Test: Atypical Atrial Flutter PVCA Integration Director Findings: ?? 1: Atrial Flutter with episodes of RVR noted. ?? 2: Ventricular rate range was 56-148 BPM with an average of 109 BPM. 3: Rare PVCs and one ventricular couplet. 4: No significant pause, longest R-R was 1.8 seconds at 4:49 AM. 5: Diary returned with no symptoms noted. Impression: Persistent atrial fibrillation with an average heart rate of 109 bpm. ??Rare premature ventricular complexes. us Marco Gomez MD [facility] PROCEDURES F inal Result documented in this encounter Visit Diagnoses Diagnosis Atypical atrial flutter (CMS/HCC) documented in this encounter Care Teams Sdc Teacher Relationship Specialty Start Date End Date Dav Jefferson MD [address] [place] [address] PCP - General Internal Medicine 12/12/24 documented as of this encounter
--- OUTSIDE RECORDS SUMMARY | 2024-12-25 12:58 | XMS_ITS | Clinical Summary ---
Author Organization [address] [facility] Address [address] [place] [address] Phone Care Team Providers Care Golf Club Assembler Name Role Phone Dav Jefferson MD Primary Care Provider [phone] Allergies Active Allergy Reactions Criticality Noted Date Comments Zolpidem Tartrate 10/29/2024 Medications atorvastatin (LIPITOR) 40 mg tablet TAKE ONE TABLET BY MOUTH EVERY DAY DIRECTED 4 Active cholecalciferol (VITAMIN D-3) 25 mcg (1,000 unit) tablet Take 1 Tablet by mouth daily. Active vit C/E/Zn/coppr/nicolas tein/zeaxan (PRESERVISION AREDS-2 ORAL) Take 1 Tablet by mouth 2 times daily. Active escitalopram (LEXAPRO) 10 mg tablet Take 15 mg by mouth daily. Active apixaban (ELIQUIS) 5 mg tablet Take 1 tablet (5 mg total) by mouth 2 (two) times a day. 60 tablet 3 5 Active aspirin 81 mg EC tablet Take 81 mg by mouth daily. 8 12/12/19 25 Discontinu ed(Prescri nola Discontinu ed) Active Problems Problem Noted Date Diagnosed Date Hyperlipidemia 12/09/2020 Overview (10/29/2024): Last Assessment & Plan: Patient's LDL is well controlled on his current statin regimen. Continue current treatment plan. Assessment & Plan (12/12/2024 12:46 PM EST): Last lipid panel from January 2024 reviewed and under acceptable control. Continue atorvastatin as prescribed. CAD (coronary artery disease) 12/09/2020 Overview (10/29/2024): Last Assessment & Plan: With non obstructive lesions by CTA in 2017. No exertional symptoms. Will continue primary prevention. Will increase atorvastatin to 40mg daily. Assessment & Plan (12/12/2024 12:46 PM EST): Patient has a history of nonobstructive coronary artery disease as seen on cardiac CT in 2017 which demonstrated multiple non obstructive disease in the LAD, circumflex and RCA. He denies any signs or symptoms of coronary insufficiency. Aspirin has been discontinued in light of starting Eliquis. He will continue with atorvastatin as prescribed. Atrial flutter 12/09/2020 Overview (10/29/2024): Last Assessment & Plan: No evidence of recurrent atrial flutter or AFib. Will continue clinial monitor. Assessment & Plan (12/12/2024 12:46 PM EST): Patient has a history of atrial flutter following surgery in 2013 that spontaneously converted. EKG in the office showing atrial flutter with variable AV block at a rate of 74 bpm. Patient is completely asymptomatic. Will start Eliquis 5 mg twice daily. He may stop aspirin. Will place 24 hour Holter monitor today. Plan to update echocardiogram and once results are reviewed can consider referral to EP to discuss options for maintaining sinus rhythm such as cardioversion and/or ablation. We did discuss that given low resting heart rate in the absence of rate control medication he may require permanent pacemaker in the future. Encounters Date Type Department Care Team Description 12/12/2024 9:30 AM EST Ancillary Procedure [facility] Cardiology [facility] [address] [place] [address] Atypical atrial flutter (CMS/HCC) 12/12/2024 7:50 AM EST Office Visit [facility] Cardiology [facility] [address] [place] [address] Marco Gomez MD Atypical atrial flutter (CMS/HCC) (Primary Dx); Coronary artery disease involving soboba coronary artery of soboba heart without angina pectoris; Hyperlipidemia, unspecified hyperlipidemia type 12/12/2024 Telephone [facility] [address] [facility] [address] [place] [address] Marco Gomez MD eliquis (eliquis) from Last 3 Months Surgical History Surgery Date Site/Laterality Comments PROSTATECTOMY PROCEDURE:PROSTATECTOMY CHOLECYSTECTOMY PROCEDURE:LAPAROSCOPIC CHOLECYSTECTOMY ACHILLES TENDON SURGERY Left PROCEDURE:ACHILLES TENDON REPAIR HERNIA REPAIR Right PROCEDURE:INGUINAL HERNIA REPAIR COLONOSCOPY PROCEDURE:COLONOSCOPY COLONOSCOPY 10/31/2016 N/A PROCEDURE:COLONOSCOPY;COMMENT:Iva johns: COLONOSCOPY; Surgeon: Kodak Harry MD; Location: [facility]; Service: Gastroenterology; Laterality: N/A; COLONOSCOPY 04/19/2023 N/A PROCEDURE:COLONOSCOPY;COMMENT:Iva johns: COLONOSCOPY; Surgeon: Kodak Harry MD; Location[place] [facility]; Service: Gastroenterology; Laterality: N/A; Medical History Medical History Date Comments Prostate cancer (CMS/HCC) DX:Pro state cancer (HCC) HTN (hypertension) DX:HTN (hyper tension) Atrial fibrillation (CMS/HCC) DX :Atrial fibrillation (HCC) History of DVT (deep vein thrombosis) DX:History of DVT (deep vein thrombosis);COMMENT:S/P prostate surgery in arm and leg History of pneumonia DX:History of pneumonia History of colon polyps DX:Histo ry of colon polyps Family History Medical History Relation Name Comments Gallbladder disease Neg Hx Social History Tobacco Use Types Packs/Day Years Used Date Smoking Tobacco: Never Smokeless Tobacco: Never Alcohol Use Standard Drinks/Week Comments Yes 7 (1 standard drink = 0.6 oz pur e alcohol) Sex and Gender Information Value Date Recorded Sex Assigned at Not on file Legal Sex Male 2:07 PM EST Gender Identity Not on file Sexual Orientation Not on file Obstetrics History Last Filed Vital Signs Vital Sign Reading Time Taken Comments Blood Pressure 116/62 12/12/2024 7:44 AM EST Pulse 74 12/12/2024 7:44 AM EST Temperature - - Respiratory Rate - - Oxygen Saturation 99% 12/12/2024 7:44 AM EST Inhaled Oxygen Concentration - - Weight 83.9 kg (185 lb) 12/12/2024 7:44 AM EST Height 177.8 cm (5' 10 ) 12/12/2024 7:44 AM EST Body Mass Index 26.54 12/12/2024 7:44 AM EST Plan of Treatment Upcoming Encounters Date Type Department Care Team (Late st Contact Info) Description 01/01/2025 1:30 PM EDT Ancillary Procedure [facility] [address] [place] [address] 01/20/2025 11:20 AM EDT Office Visit [facility] Cardiology [facility] [address] [place] [id number] Marco Gomez MD [address] [place] [address] Health Maintenance Due Date Last Done Comments COVID-19 Vaccine (#1) 1960 DTaP,Tdap,and Td Vaccines (1 - Tdap) 01/30/1972 Zoster Vaccines (1 of 2) 01/30/1972 RSV Immunization Patients 60+ Years Old (1 - Risk 60-74 years 1-dose series) 2013 Pneumococcal Vaccine: 50+ Years (2 of 2 - PPSV23) 09/17/2018 07/23/2018 Cholesterol Screening (Lipid Panel) 09/13/2022 Colorectal Cancer Screening: Colonoscopy 09/13/2022 Depression Screening 09/13/2022 Falls Risk Assessment 09/13/2022 Hepatitis C Screening 09/13/2022 Social Influencers of Health Screening 09/13/2022 Medicare Annual Wellness Visit 01/27/2024 01/26/2023 Influenza Vaccine (#1) 2024 3, 08/08/2022, 08/03/2021, Additional history exists Hypertension/CHF/CAD Annual BMP Blood Test 12/12/2025 12/12/2024 HIB Vaccines Aged Out No longer eligi ble based on patient's age to complete this topic HPV Vaccines Aged Out No longer eligi ble based on patient's age to complete this topic Hepatitis A Vaccines Aged Out No long er eligible based on patient's age to complete this topic Hepatitis B Vaccines Aged Out No long er eligible based on patient's age to complete this topic IPV Vaccines Aged Out No longer eligi ble based on patient's age to complete this topic MMR Vaccines Aged Out No longer eligi ble based on patient's age to complete this topic Meningococcal ACWY Vaccine Aged Out N o longer eligible based on patient's age to complete this topic Meningococcal B Vacine Aged Out No lo nger eligible based on patient's age to complete this topic RSV Immunization Patients Under 20 months Aged Out No longer eligible based on patient's age to complete this topic Varicella Vaccines Aged Out No longer eligible based on patient's age to complete this topic Procedures Procedure Name Priority Date/Time Associated Diagnosis Comments CBC WITH AUTO DIFFERENTIAL Routine 12/12/2024 9:13 AM EST Atypical atrial flutter (CMS/HCC) BASIC METABOLIC PANEL Routine 12/12/2024 9:13 AM EST Atypical atrial flutter (CMS/HCC) B-TYPE NATRIURETIC PEPTIDE Routine 12/12/2024 9:13 AM EST Atypical atrial flutter (CMS/HCC) CBC AND DIFFERENTIAL Routine 12/12/2024 9:13 AM EST Atypical atrial flutter (CMS/HCC) CARDIAC HOLTER MONITOR (REPORT GENERATED IN HOUSE) Routine 12/12/2024 8:45 AM EST Atypical atrial flutter (CMS/HCC) ECG 12-LEAD Routine 12/12/2024 7:57 AM EST Atypical atrial flutter (CMS/HCC) from Last 3 Months Results * (ABNORMAL) CBC auto differential (12/12/2024 9:13 AM EST) [facility] Signature WBC 7.4 4.8 - 10.8 K/[facility] LAB HEMETOLOGY METHOD 12/12/2024 10:44 AM EST [facility] RBC 4.90 4.50 - 5.50 M/[facility] LAB HEMETOLOGY METHOD 12/12/2024 10:44 AM [facility] Hemoglobin 14.9 13.5 - 17.5 g/dL LAB HEMETOLOGY METHOD 12/12/2024 10:44 AM [facility] Hematocrit 45.2 42.0 - 54.0 % LAB HEMETOLOGY METHOD 12/12/2024 10:44 AM [facility] MCV 92.2 79.0 - 98.0 FL LAB HEMETOLOGY METHOD 12/12/2024 10:44 AM [facility] MCH 30.4 27.0 - 32.0 pcg LAB HEMETOLOGY METHOD 12/12/2024 10:44 AM [facility] MCHC 33.0 32.0 - 37.0 g/dL LAB HEMETOLOGY METHOD 12/12/2024 10:44 AM [facility] RDW 13.2 11.0 - 15.0 % LAB HEMETOLOGY METHOD 12/12/2024 10:44 AM [facility] Platelets 285 130 - 400 K/mcL LAB HEMETOLOGY METHOD 12/12/2024 10:44 AM [facility] MPV 10.0 7.0 - 11.0 FL LAB HEMETOLOGY METHOD 12/12/2024 10:44 AM [facility] NRBC 0.0 <1.0 % LAB HEMETOLOGY METHOD 12/12/2024 10:44 AM [facility] NRBC Absolute 0.00 <0.10 K/mcL LAB HEMETOLOGY METHOD 12/12/2024 10:44 AM [facility] Neutrophils Relative 63.8 % LAB HEMETOLOGY METHOD 12/12/2024 10:44 AM [facility] Lymphocytes Relative 18.2 % LAB HEMETOLOGY METHOD 12/12/2024 10:44 AM [facility] Monocytes Relative 15.0 % LAB HEMETOLOGY METHOD 12/12/2024 10:44 AM EST [facility] Eosinophils Relative 1.6 % LAB HEMETOLOGY METHOD 12/12/2024 10:44 AM [facility] Basophils Relative 0.7 % LAB HEMETOLOGY METHOD 12/12/2024 10:44 AM [facility] Immature Granulocytes Relative 0.7 % LAB HEMETOLOGY METHOD 12/12/2024 10:44 AM EST [facility] Neutrophils Absolute 4.69 1.50 - 7.00 K/mcL LAB HEMETOLOGY METHOD 12/12/2024 10:44 AM [facility] Lymphocytes Absolute 1.34 1.00 - 5.00 K/mcL LAB HEMETOLOGY METHOD 12/12/2024 10:44 AM [facility] Monocytes Absolute 1.10(H) 0.20 - 1.00 K/mcL LAB HEMETOLOGY METHOD 12/12/2024 10:44 AM EST [facility] Eosinophils Absolute 0.12 0.00 - 0.50 K/mcL LAB HEMETOLOGY METHOD 12/12/2024 10:44 AM EST [facility] Basophils Absolute 0.05 0.00 - 0.20 K/mcL LAB HEMETOLOGY METHOD 12/12/2024 10:44 AM [facility] Immature Granulocytes Absolute 0.05(H) 0.00 - 0.03 K/mcL LAB HEMETOLOGY METHOD 12/12/2024 10:44 AM [facility] Blood Venous blood specimen / Unknown Venipuncture / Unknown 12/12/2024 9:13 AM EST 12/12/2024 10:21 AM EST us Marco Gomez MD LAB BLOOD ORDERABLES Final Resul t [facility] [address] [place] [address], * (ABNORMAL) B-type natriuretic peptide (12/12/2024 9:13 AM EST) Pathologist [facility] BNP 408(H) <=100 pcg/mL LAB CHEMISTRY METHOD 12/12/2024 9:49 PM [facility] Blood Venous blood specimen / Unknown Venipuncture / Unknown 12/12/2024 9:13 AM EST 12/12/2024 10:21 AM EST us Marco Gomez MD LAB BLOOD ORDERABLES Final Resul t [facility] [address] [place] [address], * Basic metabolic panel (12/12/2024 9:13 AM EST) [facility] Sodium 143 133 - 145 mmol/L LAB CHEMISTRY METHOD 12/12/2024 11:31 AM [facility] Potassium 4.6 3.5 - 5.5 mmol/L LAB CHEMISTRY METHOD 12/12/2024 11:31 AM [facility] Chloride 108 96 - 110 mmol/L LAB CHEMISTRY METHOD 12/12/2024 11:31 AM [facility] CO2 27 21 - 32 mmol/L LAB CHEMISTRY METHOD 12/12/2024 11:31 AM [facility] Anion Gap 8 3 - 11 LAB CHEMISTRY METHOD 12/12/2024 11:31 AM [facility] Glucose 87 70 - 100 mg/dL LAB CHEMISTRY METHOD 12/12/2024 11:31 AM [facility] BUN 19 5 - 25 mg/dL LAB CHEMISTRY METHOD 12/12/2024 11:31 AM [facility] Creatinine 0.95 0.70 - 1.30 mg/dL LAB CHEMISTRY METHOD 12/12/2024 11:31 AM [facility] eGFR 86 >=60 mL/min/1. 73m2 LAB CHEMISTRY METHOD 12/12/2024 11:31 AM EST [facility] Comment:Calculation based on the??Chronic Kidney Disease Epidemiology Collaboration (CKD-EPI) equation refit??without adjustment for race. BUN/Creatinine Ratio 20.0 LAB CHEMISTRY METHOD 12/12/2024 11:31 AM EST [facility] Calcium 8.7 8.5 - 10.5 mg/dL LAB CHEMISTRY METHOD 12/12/2024 11:31 AM EST [facility] Blood Venous blood specimen / Unknown Venipuncture / Unknown 12/12/2024 9:13 AM EST 12/12/2024 10:17 AM EST us Marco Gomez MD LAB BLOOD ORDERABLES Final Resul t [facility] [address] [place] [address], * CARDIAC HOLTER MONITOR (REPORT GENERATED IN HOUSE) (12/12/2024 8:45 AM EST) Anatomical Region Laterality Modality Cardiac Diagnost ic Narrative 12/15/2024 7:24 PM EST ?Persistent atrial fibrillation with elevated average heart rate in the 109 bpm. [facility] DI[facility]ST[facility] DEPARTMENT [address] [place] [id number] TEL: FAX: Type of Test: 24 Hour Holter Monitor Date of Test: 12/12/2024 Ordering Provider: Marco Gomez MD Reason for Test: Atypical Atrial Flutter PVCA Hand Flatwork Finisher Findings: ?? 1: Atrial Flutter with episodes [...] of 109 bpm. ??Rare premature ventricular complexes. Marco Gomez MD CV CARDIAC SERVICES PROCEDURES F inal Result * ECG 12 lead (12/12/2024 7:57 AM EST) Ventricular Rate ECG 74 BPM GEMUSE Atrial Rate 326 BPM GEMUSE QRS Duration 88 ms GEMUSE Q-T Interval 378 ms GEMUSE QTc 419 ms GEMUSE R Delta 73 degrees GEMUSE T Delta -29 degrees GEMUSE ECG Interpretation Atrial flutter with variable A-V block Abnormal ECG When compared with ECG of 16-OCT-2014 12:31, Atrial flutter has replaced Sinus rhythm Confirmed by Sandrine GOMEZ, MARCO ([id number]) on 12/12/2024 8:56:22 AM GEMUSE 12/12/2024 7:57 AM EST 12/12/2024 8:56 AM EST Marco Gomez MD ECG ORDERABLES Final Result GEMUSE from Last 3 Months Insurance MEDICARE [facility] Care Teams Golf Club Assembler Relationship Specialty Start Date End Date Dav Jefferson MD [address] [place] [id number] PCP - General Internal Medicine 12/12/24
--- OUTSIDE RECORDS SUMMARY | 2024-12-25 12:58 | XMS_ITS | Encounter Summary ---
Author Organization [facility] Address [address] [place] [address] Care Team Providers Care Etl Programmer Name Role Phone Dav Jefferson MD Primary Care Provider [phone] Encounter Details Date Type Department Care Team (Late st Contact Info) Description 04/27/2023 Telephone [facility] [address] [facility] [address] [place] [id number] Kodak Harry MD [address] [place] [address] [address] [place] [address] Social History Tobacco Use Types Packs/Day Years Used Date Smoking Tobacco: Never Smokeless Tobacco: Never Alcohol Use Standard Drinks/Week Comments Yes 6 (1 standard drink = 0.6 oz pur e alcohol) Sex and Gender Information Value Date Recorded Sex Assigned at Not on file Gender Identity Not on file Sexual Orientation Not on file documented as of this encounter Miscellaneous Notes * Telephone Encounter - Mony Escobedo MA - 04/27/2023 1:40 PM EDT Patient notified * Telephone Encounter - Mony Escobedo MA - 04/27/2023 1:33 PM EDT Left message for patient to call back. * Telephone Encounter - Margaret Corrales - 04/27/2023 10:08 AM EDT Patient called and said that at his procedure with Dr. Harry on 04/19, he was told he should not take advil for 2 weeks after. He said that today he has a sore back, and he usually takes advil to help with the pain. He is wondering if he is able to take advil today, or if he should wait until the full 2 weeks. Please contact at [phone] documented in this encounter Plan of Treatment Not on file documented as of this encounter Visit Diagnoses Not on filedocumented in this encounter Care Teams Etl Programmer Relationship Specialty Start Date End Date Dav Jefferson MD [address] [place] [id number] PCP - General Internal Medicine 03/14/18 documented as of this encounter
--- OUTSIDE RECORDS SUMMARY | 2024-12-25 12:59 | XMS_ITS | Clinical Summary ---
Author Organization [facility] Address [address] [facility] [place] [address] Care Team Providers Care Technical Sales Engineer Name Role Phone Dav Jefferson MD Primary Care Provider Allergies Active Allergy Reactions Criticality Noted Date Comments Zolpidem Other (See Comments) 07/27/2016 made me crazy Medications Medication Sig Dispensed Refills Start Date End Date Status metoprolol tartrate (LOPRESSOR) 25 MG tablet Take by mouth 2 (two) times a day. 0 08/19/2016 Active atorvastatin (LIPITOR) tablet 20 mg Take 1 tablet (20 mg total) by mouth daily. 0 Active escitalopram (LEXAPRO) tablet 10 mg Take 1 tablet (10 mg total) by mouth daily. 0 Active aspirin 81 MG EC tablet Take 1 tablet (81 mg total) by mouth daily. 0 Active Cholecalciferol (Vitamin D3) 25 MCG (1000 UT) CAPS Take by mouth. 0 Ac tive tamsulosin (Flomax) 0.4 MG CAPSIndications:Pr ostate cancer (HCC) Take 1 capsule (0.4 mg total) by mouth every evening after dinner. 30 capsule 0 01/17/2024 Active Additional Information Patient not taking.Reason: Other (never started), Reported on 02/08/2024 Active Problems Problem Noted Date Diagnosed Date Prostate cancer 11/06/2023 Cancer Staging:Clinical stage from 11/06/2023:Stage IIB(cT1c, cN0, cM0, PSA: 0.4, Grade Group: 2) - Signed by Kodak Juarez MD on 11/06/2023 Family History Medical History Relation Name Comments Gallbladder disease Neg Hx Social History Tobacco Use Types Packs/Day Years Used Date Smoking Tobacco: Never Smokeless Tobacco: Never Tobacco Cessation:Counseling Given: Not Answered Alcohol Use Standard Drinks/Week Comments Yes 7 (1 standard drink = 0.6 oz pur e alcohol) daily beer Sex and Gender Information Value Date Recorded Sex Assigned at Male 04/04/2023 2:26 PM EDT Gender Identity Male 04/04/2023 2:26 PM EDT Sexual Orientation Not on file Job Start Date Occupation Industry Not on file Not on file Not on file Last Filed Vital Signs Vital Sign Reading Time Taken Comments Blood Pressure 120/70 11/06/2023 8:51 AM EST Pulse 62 11/06/2023 8:51 AM EST Temperature 36.6 ??C (97.8 ??F) 04/19/2023 11:54 AM E DT Respiratory Rate 12 11/06/2023 8:51 AM EST Oxygen Saturation 99% 11/06/2023 8:51 AM EST Inhaled Oxygen Concentration - - Weight 83 kg (183 lb) 11/06/2023 8:51 AM EST Height 177.8 cm (5' 10 ) 11/06/2023 8:51 AM EST Body Mass Index 26.26 11/06/2023 8:51 AM EST Plan of Treatment Health Maintenance Due Date Last Done Comments Hepatitis C Screening 1955 Depression Screening 1965 Preventative Health Evaluation 1971 Shingrix-Zoster Vaccine (1 of 2) 01/30/1972 Fall Risk Assessment 2018 COVID-19 Vaccine ( season) 2024 09/25/2022, 07/18/2021, 12/17/2020, Additional history exists Influenza Vaccine (#1) 2024 , 08/12/2021, 08/03/2021, Additional history exists DTap / Tdap / Td (2 - Td or Tdap) 11/08/2027 11/08/2017 RSV Adult > 60+ Yrs or (1 - 1-dose 75+ series) 01/30/2028 Colon Cancer Screening (Colonoscopy) 04/19/2033 04/19/2023 Pneumococcal Vaccine Completed 11/14/2018, 07/23/2018, 11/08/2017 Hepatitis B Vaccines Aged Out No long er eligible based on patient's age to complete this topic RSV Ped < 20 months Aged Out No longe r eligible based on patient's age to complete this topic Advance Directives For more information, please contact: [phone] Latest Code Status on File Code Status Date Activated Date Inactivated Comments Full Code 04/19/2023 11:31 AM 04/19/2023 6:20 PM This c ode status was ascertained in the following way: discussion with patient. Code Status History Code Status Date Activated Date Inactivated Comments Full Code 10/31/2016 7:58 AM 10/31/2016 2:31 PM This code status was ascertained in the following way: discussion with patient. Care Teams Technical Sales Engineer Relationship Specialty Start Date End Date Dav Jefferson MD [address] [place] [id number] PCP - General Internal Medicine 07/27/16
--- OUTSIDE RECORDS SUMMARY | 2024-12-25 12:59 | XMS_ITS | Clinical Summary ---
Author Organization [facility] Address [address] [place], [place] [id number] Care Team Providers Care Pipe Fitter Soft Copper Name Role Phone Dav Jefferson MD Primary Care Provider [phone] Allergies Active Allergy Reactions Criticality Noted Date Comments Zolpidem Other (See Comments) 07/27/2016 made me crazy Medications Medication Sig Dispensed Refills Start Date End Date Status metoPROLOL TARTRATE (LOPRESSOR) 25 MG tablet Take 25 mg by mouth 2 (two) times a day. Active aspirin (CHARY ASPIRIN) 325 MG tablet Take 325 mg by mouth daily. Active aspirin 81 MG chewable tablet Chew 81 mg daily. Ac tive escitalopram (LEXAPRO) 20 MG tablet 12/24/2022 Active atorvastatin (LIPITOR) 20 MG tablet 12/24/2022 Active nwrrfm-hdnhlysmz-qrs nesium sulfates (Suprep Bowel Prep Kit) 17.5-3.13-1.6 GM/177ML Solution solutionIndications: History of colon polyps Follow directions provided by physician's office. 354 mL 01/15/2023 Active Active Problems Problem Noted Date Diagnosed Date Generalized abdominal pain 03/16/2018 Essential hypertension 03/16/2018 Atrial fibrillation 03/16/2018 Hemorrhage 03/15/2018 Social History Tobacco Use Types Packs/Day Years Used Date Smoking Tobacco: Never Smokeless Tobacco: Never Alcohol Use Standard Drinks/Week Comments Yes 6 (1 standard drink = 0.6 oz pur e alcohol) Sex and Gender Information Value Date Recorded Sex Assigned at Not on file Gender Identity Not on file Sexual Orientation Not on file Last Filed Vital Signs Vital Sign Reading Time Taken Comments Blood Pressure 120/80 01/15/2023 1:47 PM EDT Pulse 57 01/15/2023 1:47 PM EDT Temperature 36.1 ??C (97 ??F) 01/15/2023 1:47 PM EDT Respiratory Rate 20 04/30/2018 4:32 PM EDT Oxygen Saturation 97% 01/15/2023 1:47 PM EDT Inhaled Oxygen Concentration - - Weight 81.6 kg (180 lb) 01/15/2023 1:47 PM EDT Height 162.6 cm (5' 4 ) 01/15/2023 1:47 PM EDT Body Mass Index 30.9 01/15/2023 1:47 PM EDT Plan of Treatment Health Maintenance Due Date Last Done Comments Hepatitis C Virus Screening 1955 DTaP/Tdap/Td Vaccines (1 - Tdap) 01/30/1972 Colonoscopy 1998 Pneumococcal Vaccines 50+ (1 of 1 - PCV) 2003 Zoster (Shingles) Vaccine (1 of 2) 2003 Influenza Vaccine 05/15/2024 08/12/2021, , 07/22/2017 COVID-19 Vaccine ( season) 2024 09/25/2022, 07/18/2021, 12/17/2020, Additional history exists RSV Vaccine 60 years and older and Patients (1 - 1-dose 75+ series) 01/30/2028 Hepatitis B Vaccines Aged Out No long er eligible based on patient's age to complete this topic Medical Devices Explanted Type Area Show Host Device Identifier Shelf Expiration Date Model / Serial / Lot Stent Biliary 10mm 8.5fr 40mm 194cm .035in Flly Cover - [id number] Implanted:Qty: 1 on 03/15/2018 by Markos Bell MD at [facility] Explanted:Qty: 1 on 04/30/2018 at [facility] Stent [employer] LEEANN [id number] / / Stent Biliary 10fr 7cm 2 Pgtl Crv Taper Zmn Polyethe Sterl - [id number] Implanted:Qty: 1 on 03/15/2018 by Markos Bell MD at [facility] Explanted:Qty: 1 on 04/30/2018 at [facility] Stent [employer] [id number] 05/08/2020 [id number] / / [id number] Advance Directives * Full Code (Latest Code Status on File) Date Activated Date Inactivated Comments 03/15/2018 11:33 AM 04/30/2018 1:43 PM Care Teams Pipe Fitter Soft Copper Relationship Specialty Start Date End Date Dav Jefferson MD [address] [place] [id number] PCP - General Internal Medicine 03/14/18
--- OUTSIDE RECORDS SUMMARY | 2024-12-25 12:59 | XMS_ITS | Encounter Summary ---
Author Organization [facility] Address [address] [place] [address] Care Team Providers Care Process Safety Engineering Technologist Name Role Phone Dav Jefferson MD Primary Care Provider [phone] Reason for Referral * Cardiac Stress Testing (Routine) - Closed Specialty Diagnoses / Procedures Referred By Bijan munoz Referred To Contact Cardiology Diagnoses Atypical atrial flutter (CMS/HCC) Procedures Cardiac holter monitor (<= 48 hours) KS ECG EXTERNAL UP TO 48 HOURS RECORDING KS ECG EXTERNAL < 48 HOURS CONTINUOUS RECORDING/STORAGE R&I BY A PHYS/QHP KS EXTERNAL ECG UP TO 48 HRS INCL RECORDING SCANNING ANLYS W REPORT Warren Gomez MD [address] [place] [address] Phone: tel: fax: [facility] Referral ID Status Reason Start Date Expiration Date Visits Re quested Visits Authorized [id number] Closed 12/12/2024 12/12/2025 1 1 * Imaging (Routine) - Authorized Specialty Diagnoses / Procedures Referred By Bijan munoz Referred To Contact Cardiology Diagnoses Atypical atrial flutter (CMS/HCC) Procedures Transthoracic echocardiogram (TTE) complete with PRN contrast, bubble, strain, and 3D order panel KS TTE W 2D IMAGE COMPLETE W DOPPLER ECHO & COLOR FLOW DOPPLER ECHO KS RADHA 2D COMPLETE W/CONTRAST OR W & WO CONTRAST WITH DOPPLER Warren Gomez MD [address] [place] [address] Phone: tel: fax: [facility] Referral ID Status Reason Start Date Expiration Date V isits Requested Visits Authorized [id number] Authorized 12/12/2024 12/12/2025 1 1 Reason for Visit * Reason Comments Follow-up Encounter Details Date Type Department Care Team (Late st Contact Info) Description 12/12/2024 7:50 AM EST Office Visit [facility] [address] [facility] [address] [place] [id number] Warren Gomez MD [address] [place] [address] Atypical atrial flutter (CMS/HCC) (Primary Dx); Coronary artery disease involving sitka coronary artery of sitka heart without angina pectoris; Hyperlipidemia, unspecified hyperlipidemia type Social History Tobacco Use Types Packs/Day Years [...] on file documented as of this encounter Last Filed Vital Signs Vital Sign Reading [...] Mass Index 26.54 12/12/2024 7:44 AM EST documented in this encounter Ordered Prescriptions Prescription Sig Dispense Quantity Refills Last Filled Start Date End Date apixaban (ELIQUIS) 5 mg tablet Take 1 tablet (5 mg total) by mouth 2 (two) times a day. 60 tablet 3 12/12/2024 documented in this encounter Progress Notes * Warren Gomez MD - 12/12/2024 7:50 AM ESTAssociated Problem(s): Atrial flutter (CMS/HCC) Patient has a history of atrial flutter following surgery in 2013 that spontaneously converted. EKGin the office showing atrial flutter with variable [...] may require permanent pacemaker in the future. * Warren Gomez MD - 12/12/2024 7:50 AM ESTAssociated Problem(s): CAD (coronary artery disease) Patient has a history of nonobstructive coronary artery disease as seen on cardiac CT in 2016 whichdemonstrated multiple non obstructive disease in the LAD, circumflex and RCA. He denies any signs or symptoms of coronary insufficiency. Aspirin has been discontinued in light of starting Eliquis. He will continue with atorvastatin as prescribed. * Warren Gomez MD - 12/12/2024 7:50 AM ESTAssociated Problem(s): Hyperlipidemia Last lipid panel from January 2024 reviewed and under acceptable control. Continue atorvastatin as prescribed. * Warren Gomez MD - 12/12/2024 7:50 AM EST Images from the original note were not included. [facility] PRIMARY FIELD SUPERVISOR: Warren Gomez MD PCP: Dav Jefferson MD HPI: Bob Frye is a 69 y.o. old male with a past medical history of atrial flutter/A. Fib and CAD. He had atrial flutter in 05/2014 after the surgery with ileus. He converted to sinus spontaneously. The stress test was normal. Holter monitor didn't report atrial fibrillation or atrial flutter. Coumadin was stopped. He had a few more surgeries since then and did not have atrial fibrillation or atrial flutter perioperatively. He had 2 stress tests in the past and last one was in 2016. He did extremely well on treadmill stress test and exercised from 12-14 minutes on 2 occasions without symptoms. But he had significant ST depression. Echocardiogram showed no wall motion abnormality. Eventually, he had a coronary CTA in 2016 which demonstrated multiple non obstructive disease in the LAD, circumflex and RCA. Last year he underwent 38 rounds of radiation therapy for prostate cancer. He was last seen in July 2023. EKG done in the office today shows atrial flutter with variable AV block and heart rate 74bpm. Patient denies any symptoms. No chest discomfort or shortness of breath with or without exertion, fatigue, palpitations, dizziness/lightheadedness, near-syncope/syncope, orthopnea, PND or lower extremity edema. He did have a significant nosebleed a couple weeks ago but did not require hospitalization. He has since been using a humidifier no further episodes of bleeding. Otherwise no other abnormal bruising or bleeding. ACTIVE MEDICATIONS: Current Outpatient Medications Medication Instructions aspirin 81 mg EC tablet Take 81 mg by mouth daily. atorvastatin (LIPITOR) 40 mg tablet TAKE ONE TABLET BY MOUTH EVERY DAY DIRECTED cholecalciferol (VITAMIN D-3) 25 mcg (1,000 unit) tablet Take 1 Tablet by mouth daily. escitalopram (LEXAPRO) 10 mg tablet Take 15 mg by mouth daily. vit C/E/Zn/coppr/lutein/zeaxan (PRESERVISION AREDS-2 ORAL) Take 1 Tablet by mouth 2 times daily. PAST MEDICAL HISTORY: Patient Active Problem List Diagnosis Hyperlipidemia CAD (coronary artery disease) Atrial flutter (CMS/HCC) ALLERGIES: Allergies Allergen Reactions Zolpidem Tartrate SOCIAL HISTORY: Social History Tobacco Use Smoking status: Never Smokeless tobacco: Never Substance Use Topics Alcohol use: Yes Alcohol/week: 7.0 - 14.0 standard drinks of alcohol PHYSICAL EXAM: Vitals: 12/12/24 0744 BP: 116/62 Pulse: 74 SpO2: 99% Weight: 83.9 kg (185 lb) Height: 1.778 m (70 ) Physical Exam Vitals reviewed. Constitutional: General: He is not in acute distress. HENT: Head: Normocephalic and atraumatic. Neck: Vascular: No carotid bruit. Cardiovascular: Rate and Rhythm: Normal rate. Rhythm irregular. Pulses: Normal pulses. Heart sounds: No murmur heard. No friction rub. No gallop. Pulmonary: Effort: Pulmonary effort is normal. Breath sounds: Normal breath sounds. Abdominal: General: Abdomen is flat. Palpations: Abdomen is soft. Musculoskeletal: Cervical back: Normal range of motion and neck supple. Right lower leg: No edema. Left lower leg: No edema. Skin: General: Skin is warm and dry. Neurological: General: No focal deficit present. Mental Status: He is alert and oriented to person, place, and time. Psychiatric: Mood and Affect: Mood normal. Behavior: Behavior normal. EKG: TESTIN02/08/2024 Glucose 98 BUN 25 Creatinine 0.99 eGFR 81 Sodium 142 Potassium 4.4 Chloride 103 Bicarb 23 Calcium 9.4 Bili 0.9 Alk phos 70 AST 26 ALT 25 WBC 5.7 Hgb 14.4 HCT 42.6 PLT 207 Cholesterol 142 Triglycerides 97 HDL 49 LDL 75 non-HDL 93 TSH 1.020 ASSESSMENT/PLAN: As per AHA guidelines and previously established plan of care by Dr. Warren Gomez MD, we discussed the following today: Assessment & Plan Atypical atrial flutter (CMS/HCC) Patient has a history of atrial flutter following surgery in 2013 that spontaneously converted. EKGin the office showing atrial flutter with variable [...] may require permanent pacemaker in the future. Coronary artery disease involving sitka coronary artery of sitka heart without angina pectoris Patient has a history of nonobstructive coronary artery disease as seen on cardiac CT in 2016 whichdemonstrated multiple non obstructive disease in the LAD, circumflex and RCA. He denies any signs or symptoms of coronary insufficiency. Aspirin has been discontinued in light of starting Eliquis. He will continue with atorvastatin as prescribed. Hyperlipidemia, unspecified hyperlipidemia type Last lipid panel from January 2024 reviewed and under acceptable control. Continue atorvastatin as prescribed. Thank you for allowing us to participate in the care of this patient. The patient will follow up in1 month following echo, sooner PRN. I saw Mr. Frye together with Lucy Fry and discussed assessment and treatment plan with Mr Frye. I agree with above comments and plans, Dr. Warren Gomez MD, PhD [facility] documented in this encounter Plan of Treatment Upcoming Encounters Date Type Department Care Team (Late st Contact Info) Description 01/01/2025 1:30 PM EDT Ancillary Procedure [facility] [address] [place] [address] 01/20/2025 11:20 AM EDT Office Visit [facility] - [address] [place] [address] Warren Gomez MD [address] [place] [address] Scheduled Orders Name Type Priority Associated Diagnoses Order Schedule Transthoracic echocardiogram (TTE) complete with PRN contrast, bubble, strain, and 3D order panel Echocardiography Routine Atypical atrial flutter (CMS/HCC) 1 Occurrences starting 12/12/2024 until 12/12/2025 documented as of this encounter Procedures Procedure Name Priority Date/Time Associated Diagnosis Comments ECG 12-LEAD Routine 12/12/2024 7:57 AM EST Atypical atrial flutter (CMS/HCC) documented in this encounter Results * Basic metabolic panel (12/12/2024 9:13 AM EST) Sodium 143 133 - 145 mmol/L LAB CHEMISTRY METHOD 12/12/2024 11:31 AM [facility] Potassium 4.6 3.5 - 5.5 mmol/L LAB CHEMISTRY METHOD 12/12/2024 11:31 AM [facility] Chloride 108 96 - 110 mmol/L LAB CHEMISTRY METHOD 12/12/2024 11:31 AM [facility] CO2 27 21 - 32 mmol/L LAB CHEMISTRY METHOD 12/12/2024 11:31 AM [facility] Anion Gap 8 3 - 11 LAB CHEMISTRY METHOD 12/12/2024 11:31 AM [facility] Glucose 87 70 - 100 mg/dL LAB CHEMISTRY METHOD 12/12/2024 11:31 AM [facility] BUN 19 5 - 25 mg/dL LAB CHEMISTRY METHOD 12/12/2024 11:31 AM [facility] Creatinine 0.95 0.70 - 1.30 mg/dL LAB CHEMISTRY METHOD 12/12/2024 11:31 AM [facility] eGFR 86 >=60 mL/min/1. 73m2 LAB CHEMISTRY METHOD 12/12/2024 11:31 AM [facility] Comment:Calculation based on the??Chronic Kidney Disease Epidemiology Collaboration (CKD-EPI) equation refit??without adjustment for race. BUN/Creatinine Ratio 20.0 LAB CHEMISTRY METHOD 12/12/2024 11:31 AM [facility] Calcium 8.7 8.5 - 10.5 mg/dL LAB CHEMISTRY METHOD 12/12/2024 11:31 AM [facility] Blood Venous blood specimen / Unknown Venipuncture / Unknown 12/12/2024 9:13 AM EST 12/12/2024 10:17 AM EST Warren Gomez MD LAB BLOOD ORDERABLES Final Resul t Performing Organization Address [facility]/ZIP Co de Phone Number [facility] [address] [place] [address], [place] [phone] * (ABNORMAL) B-type natriuretic peptide (12/12/2024 9:13 AM EST) BNP 408(H) <=100 pcg/mL LAB CHEMISTRY METHOD 12/12/2024 9:49 PM EST [facility] Blood Venous blood specimen / Unknown Venipuncture / Unknown 12/12/2024 9:13 AM EST 12/12/2024 10:21 AM EST Warren Gomez MD LAB BLOOD ORDERABLES Final Resul t Performing Organization Address [facility]/ZIP Co de Phone Number [facility] [address] [place] [address], [place] [phone] * CARDIAC HOLTER MONITOR (REPORT GENERATED IN HOUSE) (12/12/2024 8:45 AM EST) Anatomical Region Laterality Modality Cardiac Diagnost ic Narrative 12/15/2024 7:24 PM EST ?Persistent atrial fibrillation with elevated average heart rate in the 109 bpm. [facility] DIAGNOSTIC TESTING DEPARTMENT [address] [place] [id number] TEL: FAX: Type of Test: 24 Hour Holter Monitor Date of Test: 12/12/2024 Ordering Provider: Warren Gomez MD Reason for Test: Atypical Atrial Flutter [facility] Home Delivery Driver Findings: ?? 1: Atrial Flutter with episodes [...] of 109 bpm. ??Rare premature ventricular complexes. Warren Gomez MD CV CARDIAC SERVICES PROCEDURES F inal Result * ECG 12 lead (12/12/2024 7:57 AM EST) Ventricular Rate ECG 74 BPM GEMUSE Atrial Rate 326 BPM GEMUSE QRS Duration 88 ms GEMUSE Q-T Interval 378 ms GEMUSE QTc 419 ms GEMUSE R [place] 73 degrees GEMUSE T [place] -29 degrees GEMUSE ECG Interpretation Atrial flutter with variable A-V block Abnormal ECG When compared with ECG of 16-OCT-2014 12:31, Atrial flutter has replaced Sinus rhythm Confirmed by Sandrine GOMEZ, WARREN ([id number]) on 12/12/2024 8:56:22 AM GEMUSE 12/12/2024 7:57 AM EST 12/12/2024 8:56 AM EST Warren Gomez MD ECG ORDERABLES Final Result EDDA documented in this encounter Visit Diagnoses Diagnosis Atypical atrial flutter (CMS/HCC)- Primary Coronary artery disease involving sitka coronary artery of sitka heart without angina pectoris Hyperlipidemia, unspecified hyperlipidemia type Atypical atrial flutter (CMS/HCC) documented in this encounter Discontinued Medications Medication Sig Discontinue Reason Start Date End Da te aspirin 81 mg EC tablet Take 81 mg by mouth daily. Prescriber Discontinued 04/16/2018 12/12/2024 documented as of this encounter Care Teams Process Safety Engineering Technologist Relationship Specialty Start Date End Date Dav Jefferson MD [address] [place] [address] PCP - General Internal Medicine 12/12/24 documented as of this encounter
--- OUTSIDE RECORDS SUMMARY | 2024-12-25 12:59 | XMS_ITS ---
Author Name [facility] History of Medication Use Medication Directions Dispensed Refills Start Date End Date Stat us predniSONE (DELTASONE) 10 mg tablet pack Take 4 tabs for 4 days, 3 tabs for 3 days, 2 tabs for 2 days, 1 tab for 1 day 11/27/2024 active atorvastatin (LIPITOR) 40 mg tablet TAKE ONE TABLET BY MOUTH EVERY DAY DIRECTED 08/14/2024 active aspirin 325 mg Immediate Release tablet Take 1 tablet (325 mg total) by mouth daily. active escitalopram oxalate (LEXAPRO) 10 mg tablet Take 15 mg by mouth daily. active Vitamin D3 active atorvastatin 40 mg tablet active atorvastatin (LIPITOR) tablet 20 mg Take 1 tablet (20 mg total) by mouth daily. active metoprolol tartrate (LOPRESSOR) 25 MG tablet Take by mouth 2 (two) times a day. 08/19/2016 active aspirin (CHARY ASPIRIN) 325 MG tablet Take 325 mg by mouth daily. active Cholecalciferol (Vitamin D3) 25 MCG (1000 UT) CAPS Take by mouth. active metoPROLOL TARTRATE (LOPRESSOR) 25 MG tablet Take 25 mg by mouth 2 (two) times a day. active Problems Problem Status Onset Date Problem Type Date of Resoluti on Source Arthritis of left glenohumeral joint active 2024-12-02 ProblemAct [facility] Pain of left shoulder region active 2024-11-05 ProblemAct [facility] Strain of triceps brachii muscle active 2024-10-22 ProblemAct [facility] Contusion of right elbow active 2024-10-22 ProblemAct [facility] Pain in elbow active 2024-11-05 ProblemAct [facility] Atrial fibrillation (HC Code) (HC CODE) active 2018-03-16 [facility]Act [facility] Hyperlipidemia active 2020-12-[address] [facility] [facility] CAD (coronary artery disease) active 2020-12-09 [facility]Act [facility] Hemorrhage active 2018-03-15 [facility]Act [facility] Essential hypertension active 2018-03-16 [facility]Act [facility] 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 active 2024-11-27 [facility]Act [facility] Unspecified acute conjunctivitis, right eye active 2024-04-02 ProblemAct [facility] Unspecified conjunctivitis active 2024-03-31 ProblemAct [facility] Acute pharyngitis, unspecified active 2024-04-06 ProblemAct [facility] Malignant neoplasm of prostate active ProblemAct [facility] Generalized abdominal pain active 2018-03-16 ProblemAct [facility] Prostate cancer active 2023-11-[address] [facility] Encounters Encounter Type Encounter Reason Primary Diagnosis Location Date Ambulatory [facility] [place] 12/03/2024 Ambulatory [facility] 11/27/2024 Ambulatory [facility] [place] 11/21/2024 Ambulatory [facility] [place] 11/21/2024 Ambulatory [facility] [place] 11/21/2024 Ambulatory [facility] [place] 10/23/2024 Ambulatory [facility] [place] 10/22/2024 Ambulatory [facility] [place] 10/22/2024 Ambulatory [facility] [place] 10/22/2024 Ambulatory [facility] [place] 10/22/2024 Ambulatory [facility] [place] 10/22/2024 Ambulatory [facility] [place] 10/22/2024 Ambulatory [facility] [place] 10/22/2024 Ambulatory [facility] 03/31/2024 Ambulatory Malignant neoplasm of prostate Malignant neoplasm of prostate [facility] 02/08/2024 Ambulatory Malignant neoplasm of prostate Malignant neoplasm of prostate [facility] 01/02/2024 Ambulatory Malignant neoplasm of prostate Malignant neoplasm of prostate [facility] 12/26/2023 Ambulatory [facility] 12/12/2023 Ambulatory Malignant neoplasm of prostate Malignant neoplasm of prostate [facility] 12/05/2023 Ambulatory Malignant neoplasm of prostate Malignant neoplasm of prostate [facility] 11/28/2023 Ambulatory Malignant neoplasm of prostate Malignant neoplasm of prostate [facility] 11/21/2023 Ambulatory Malignant neoplasm of prostate Malignant neoplasm of prostate [facility] 11/14/2023 Ambulatory Malignant neoplasm of prostate Malignant neoplasm of prostate [facility] 11/06/2023 Ambulatory Malignant neoplasm of prostate Malignant neoplasm of prostate [facility] 11/06/2023 Ambulatory [facility] 09/24/2023 Ambulatory Personal history of colonic polyps [facility] 04/19/2023 Ambulatory Personal history of colonic polyps [facility] 01/15/2023 Care Team Organization Name Specialty Phone Email Start Date End [facility] 11/27/2024 [facility] NO PROVIDER Primary Care 03/31/2024 [facility] NO PROVIDER Primary Care 03/31/2024 [facility] Primary Care 10/16 [facility] APUR[facility] HUMPHREYS Primary Care 09/24/2023 [facility] 08/17/2023 024 [facility] 04/19/2004/19/2023 [facility] 2022 [facility] 03/17/2023 [facility] Care 02/13/2023 02/13/2023 [facility] APURVA HUMPHREYS Primary Care 01/15/2023 [facility] Primary Care
[2024-12-30 19:09] LABS: PSA, Ultra Sensitive <0.02 ng/mL
== END 2024-12-25 10:24 | disposition home or self-care (01) ==
LOC: HO.10HDL 10:23
PROVIDERS: Visit Provider Urology
DX: C61 Malignant neoplasm of prostate (principal); R97.21 Rising PSA following treatment for malignant neoplasm of prostate; Z19.1 Hormone sensitive malignancy status; Z12.5 Encounter for screening for malignant neoplasm of prostate
CPT/HCPCS: 36415; 84153

== ENCOUNTER 2025-01-09 11:50 | Outpatient (AMB) | payer MEDICARE, BC, SELFPAY ==
--- NOTE | 2025-01-09 11:50 | A.OFFVIS_ITS ---
Intake Visit Reasons: 6M PSA/Rad Onc Follow Up(PSA?) Intake Note: Pt presents to the office today as a telehealth visit for a 6 month PSA/Rad onc follow up. Allergies zolpidem [Ambien] Allergy (Unknown, Verified 01/09/25 11:50) unknown HPI Comments Details: Bob is a very pleasant male. He is a patient of Dr. Jefferson. He is seen for the following urologic conditions. - Prostate cancer - initial prostatectomy 2013, salvage radiation 2023 - Bladder neck contraction - Erectile dysfunction - has progressive Alzheimer's Telemedicine Evaluation 15 min Consultation TopCoder [place] Video Continue good PSA response 07/08 PSA <0.02 ultrasensitive PSA nondetectable, 01/06 <0.02 04/07 - Completed external beam radiation through [facility] [place] with Dr Juarez 04/07 PSA <0.1 GnRH 10/06 Prostate cancer: Intermediate risk. Initial therapy radical prostatectomy 2013 Prostate cancer was diagnosed Dr Mayfield 2013. Diagnosis was reached by needle biopsy, for elevated PSA. The Elisa grade is 3+4 = 7, at surgery. TNM Classification of Malignant Tumours (TNM) T2b. The D'Keaton (NCCN) risk category is Intermediate Risk (PSA 10-20, Gl 7, T2) Initial therapy included Primary treatment, Prostatectomy (RRP/Robotic), Additional treatment, Observation. Recent labs included a PSA (prostate-specific antigen) 11/30 < 0.1 12/01 < 0.1, 05/31 < 0.1, 11/02 < 0.1, 11/03 0.1, 08/03 0.1, 01/02 0.11, 04/05 0.1, 09/05 0.2, 01/04 0.2, 05/06 0.27. 09/06 0.36 Associated conditions erectile dysfunction Yes Erectile DESHAUN Score 12 Therapeutic plan: Continue with surveillance Urethral Strictures: Urination effective. The stricture was diagnosed Oct 2014. Bladder neck contracture incised [facility] Medical History History of kidney stones Atrial fibrillation Colonic polyp Mitral valve regurgitation Hyperlipidemia Erectile dysfunction Urethral stricture Prostate cancer Surgical History History of surgery Review of Systems Const All systems reviewed & are unremarkable except as noted in HPI and below Reports no additional complaints Resp Reports no additional complaints GI Reports no additional complaints Reports as per HPI Musc Reports no additional complaints Physical Exam Telemedicine evaluation Appropriate responses Regular breathing rate and rhythm HEENT Head: Yes normal to inspection Ears: hearing grossly normal bilaterally Eyes General: appearance normal, both eyes and all related structures Neck Neck: Yes normal visual inspection Chest Chest palpation & inspection: normal inspection of the chest Resp Effort & Inspection: normal respiratory effort and able to speak in complete s entences Telehealth Telehealth Telehealth Platform: TopCoder Location of provider rendering services: practice address Location of patient: address on file Patient Identification confirmed using: Name, : Yes Telehealth method: video Patient verbally consented to treatment: Yes Patient verbally consented to billing insurance company: Yes Patient informed of any privacy concerns related to visit: Yes Minutes spent on Phone/Video with Pt.: 15 Assessment & Plan Assessment & Plan (1) Prostate cancer: Comment: RRP 2006 Code(s): C61 - Malignant neoplasm of prostate Category: Medical (2) Bladder neck stricture: Code(s): N32.0 - Bladder-neck obstruction Category: Medical Plan Six-month follow-up PSA Orders: Orders PSA, Ultra Sensitive 6 Months C61 - Malignant neoplasm of prostate Patient Instructions: This note is constructed using voice recognition software. While every effort has been made to ensure accuracy industrial machine assembler errors may have been included. Imaging studies, laboratory and physical exam results were discussed and reviewed in detail. No major barriers to patient understanding were identified. An opportunity to ask questions regarding the treatment plan was provided. All questions were answered. The patient expressed understanding and agreement with the above treatment plan. The patient is aware they should contact our office by phone for worsening of their current condition or the appearance of new urologic symptoms. Compliance is encouraged with any medications and followup testing that is ordered. It is a privilege to participate in the urologic care of your patient. If you have any questions or concerns regarding treatment for the above conditions, or other urologic issues, please do not hesitate to contact me. The office telephone contact is [phone]. Sincerely, Dr Josiah Olivas MD, [facility] - Urology Compassionate Specialist Care for the Genitourinary System Coding Level of Care Code Tele Est Pt Level 3 (43337) Complex EM visit Add On G2211 Diagnoses Prostate cancer C61 Bladder neck stricture N32.0
== END 2025-01-09 13:28 | disposition home or self-care (01) ==
LOC: HO.HUSH 11:50
PROVIDERS: PCP Internal Medicine; Visit Provider Urology
DX: C61 Malignant neoplasm of prostate (principal); N32.0 Bladder-neck obstruction
CPT/HCPCS: 99213; G2211

== ENCOUNTER → 2025-01-09 11:50 | Outpatient (BNVA) | payer MEDICARE, BC, SELFPAY | PROVIDERS: PCP Internal Medicine; Visit Provider Urology ==

== ENCOUNTER 2025-06-25 10:26 | Outpatient (REF) | payer MEDICARE, BC, SELFPAY ==
[2025-07-01 00:38] LABS: PSA, Ultra Sensitive <0.02 ng/mL
== END 2025-06-25 10:27 | disposition home or self-care (01) ==
LOC: HO.10HDL 10:26
PROVIDERS: Visit Provider Urology
DX: C61 Malignant neoplasm of prostate (principal); Z12.5 Encounter for screening for malignant neoplasm of prostate
CPT/HCPCS: 36415; 84153

== ENCOUNTER 2025-07-14 11:17 | Outpatient (AMB) | payer MEDICARE, BC, SELFPAY ==
--- NOTE | 2025-07-14 11:24 | A.OFFVIS_ITS ---
Intake Visit Reasons: 6m/PSA Intake Note: Patient presents to the office today 6 mo follow up Urology meds : none Blood Thinner : none Labs done :06/25/25 PSA <0.02 Buildings And Grounds Supervisor Required: No Accompanied by: Self / Same As Patient Allergies zolpidem (Ambien) Allergy (Unknown, Verified 07/14/25 11:25) unknown HPI Comments Details: Bob is a very pleasant male. He is a patient of Dr. Jefferson. He is seen for the following urologic conditions. - Prostate cancer - initial prostatectomy 2013, salvage radiation 2023 - Bladder neck contraction - Erectile dysfunction - has progressive Alzheimer's Six-month follow-up Continue good PSA response 07/08 PSA <0.02 ultrasensitive PSA nondetectable, 01/06 <0.02, 07/09 <0.02 04/07 - Completed external beam radiation through [facility] [place] with Dr Juarez 04/07, PSA <0.1 GnRH 10/06 Continue Q six-month follow-up for 5 year Prostate cancer: Intermediate risk. Initial therapy radical prostatectomy 2013, salvage radiation 2023 for rising PSA Prostate cancer was diagnosed Dr Mayfield 2013. Diagnosis was reached by needle biopsy, for elevated PSA. The Elisa grade is 3+4 = 7, at surgery. TNM Classification of Malignant Tumours (TNM) T2b. The D'Keaton (NCCN) risk category is Intermediate Risk (PSA 10-20, Gl 7, T2) Initial therapy included Primary treatment, Prostatectomy (RRP/Robotic), Additional treatment, Observation. Recent labs included a PSA (prostate-specific antigen) 11/30 < 0.1 12/01 < 0.1, 05/31 < 0.1, 11/02 < 0.1, 11/03 0.1, 08/03 0.1, 01/02 0.11, 04/05 0.1, 09/05 0.2, 01/04 0.2, 05/06 0.27. 09/06 0.36 Associated conditions erectile dysfunction Yes Erectile DESHAUN Score 12 Therapeutic plan: Continue with surveillance Urethral Strictures: Urination effective. The stricture was diagnosed Oct 2014. Bladder neck contracture incised [facility] Medical History History of kidney stones Atrial fibrillation Colonic polyp Mitral valve regurgitation Hyperlipidemia Erectile dysfunction Urethral stricture Prostate cancer Surgical History History of surgery Review of Systems Const Denies chills and Denies fever(s) Card Reports no additional complaints and Denies syncope Resp Denies cough GI Denies abdominal pain and Denies heartburn Reports as per HPI and Denies change in libido Neuro Denies syncope Psych Denies change in libido Endo Denies change in libido Physical Exam Const General: cooperative, healthy appearing, comfortable and no acute distress Orientation/consciousness: patient oriented x3 HEENT Face and sinus: Yes normal facial exam Mouth: moist mucous membranes Neck Neck: Yes normal visual inspection, Yes full ROM and Yes trachea midline Chest Chest palpation & inspection: normal inspection of the chest Resp Effort & Inspection: normal respiratory effort, able to speak in complete sentences and no respiratory distress GI Inspection: Yes normal to inspection Back/Spine/Pelvis Cervical Spine: normal cervical lordosis Thoracic/Lumbar Spine: thoracic and lumbar spine normal to inspection Skin General skin exam: no rashes or lesions noted Neuro General: patient oriented x3, gait normal, tone normal and moves all extremities Extrem General: Yes normal to inspection and Yes capillary refill normal Assessment & Plan Assessment & Plan (1) Biochemically recurrent castration-sensitive adenocarcinoma of prostate: Code(s): C61 - Malignant neoplasm of prostate; R97.21 - Rising PSA following treatment for malignant neoplasm of prostate; Z19.1 - Hormone sensitive malignancy status Category: Medical Plan Six-month follow-up PSA office Orders: Orders Prostate Specific Antigen 6 Months C61 - Malignant neoplasm of prostate, R97.21 - Rising PSA following treatment for malignant neoplasm of prostate, Z19.1 - Hormone sensitive malignancy status Patient Instructions: This note is constructed using voice recognition software. While every effort has been made to ensure accuracy falsework builder errors may have been included. Imaging studies, laboratory and physical exam results were discussed and reviewed in detail. No major barriers to patient understanding were identified. An opportunity to ask questions regarding the treatment plan was provided. All questions were answered. The patient expressed understanding and agreement with the above treatment plan. The patient is aware they should contact our office by phone for worsening of their current condition or the appearance of new urologic symptoms. Compliance is encouraged with any medications and followup testing that is ordered. It is a privilege to participate in the urologic care of your patient. If you have any questions or concerns regarding treatment for the above conditions, or other urologic issues, please do not hesitate to contact me. The office telephone contact is [phone]. Sincerely, Dr Josiah Olivas MD, [facility] - Urology Compassionate Specialist Care for the Genitourinary System Coding Level of Care Code Est Pt Level 3 (49873) Complex EM visit Add On G2211 Diagnoses Biochemically recurrent castration-sensitive adenocarcinoma of prostate C61; R97.21; Z19.1
--- OUTSIDE RECORDS SUMMARY | 2025-07-14 12:44 | XMS_ITS | Encounter Summary ---
Author Organization [facility] Address [address] [place] [address] Care Team Providers Care Blade Grinder Name Role Phone Dav Jefferson MD Primary Care Provider [phone] Encounter Details Date Type Department Care Team (Late st Contact Info) Description 04/27/2023 Telephone [facility] [address] [facility] [address] [place] [id number] Kodak Harry MD [address] [place] [address] [address] [place] [address] Social History Tobacco Use Types Packs/Day Years Used Date Smoking Tobacco: Never Smokeless Tobacco: Never Alcohol Use Standard Drinks/Week Comments Yes 6 (1 standard drink = 0.6 oz pur e alcohol) Sex and Gender Information Value Date Recorded Sex Assigned at Not on file Legal Sex Male 3:32 PM EDT Gender Identity Not on file Sexual Orientation [...] the full 2 weeks. Please contact at [phone] documented in this encounter Plan of Treatment Not on file documented as of this encounter Visit Diagnoses Not on filedocumented in this encounter Care Teams Blade Grinder Relationship Specialty Start Date End Date Dav Jefferson MD [address] [place] [id number] PCP - General Internal Medicine 03/14/18 documented as of this encounter
--- OUTSIDE RECORDS SUMMARY | 2025-07-14 12:44 | XMS_ITS | Clinical Summary ---
Author Organization [facility] Address [address] [place], [place] [id number] Care Team Providers Care Inside Sales Supervisor Name Role Phone Dav Jefferson MD Primary Care Provider [phone] Allergies Active Allergy Reactions Criticality Noted Date Comments Zolpidem Other (See Comments) 07/27/2016 made me crazy Medications metoPROLOL TARTRATE (LOPRESSOR) 25 MG tablet Take 25 mg by mouth 2 (two) times a day. Active aspirin (CHARY ASPIRIN) 325 MG tablet Take 325 mg by mouth daily. Active aspirin 81 MG chewable tablet Chew 81 mg daily. Active escitalopram (LEXAPRO) 20 MG tablet 3 Active atorvastatin (LIPITOR) 20 MG tablet 3 Active sodium-potassiu m-magnesium sulfates (Suprep Bowel Prep Kit) 17.5-3.13-1.6 GM/177ML Solution solutionIndicat ions:History of colon polyps Follow directions provided by physician's office. 354 mL 3 Active Active Problems Problem Noted Date Diagnosed [...] 57 01/15/2023 1:47 PM EDT Temperature 36.1 C (97 F) 01/15/2023 1:47 PM EDT Respiratory Rate 20 04/30/2018 4:32 PM EDT Oxygen Saturation 97% 01/15/2023 1:47 PM EDT Inhaled Oxygen Concentration - - Weight 81.6 kg (180 lb) 01/15/2023 1:47 PM EDT Height 162.6 cm (5' 4 ) 01/15/2023 1:47 PM EDT Body Mass Index 30.9 01/15/2023 1:47 PM EDT Plan of Treatment Health Maintenance Due Date Last Done Comments Advance Care Planning 1955 Hepatitis C Virus Screening 1955 DTaP/Tdap/Td Vaccines (1 - Tdap) 01/30/1972 Colonoscopy 1998 Pneumococcal Vaccines 50+ (1 of 1 - PCV) 2003 Zoster (Shingles) Vaccine (1 of 2) 2003 RSV Vaccine 60 years and older and Patients (1 - Risk 60-74 years 1-dose series) 2013 Influenza Vaccine 05/15/2025 08/12/2021, , 07/22/2017 COVID-19 Vaccine (2024- season) 2025 09/25/2022, 07/18/2021, 12/17/2020, Additional history exists Hepatitis B Vaccines Aged Out No long er eligible based on patient's age to complete this topic Medical Devices Explanted Type Area Case Operator Device Identifier Shelf Expiration Date Model / Serial / Lot Stent Biliary 10mm 8.5fr 40mm 194cm .035in Flly Cover - [id number] Implanted:Qty: 1 on 03/15/2018 by Markos Bell MD at [facility] Explanted:Qty: 1 on 04/30/2018 at [facility] Stent Impact Driven LEEANN [id number] / / Stent Biliary 10fr 7cm 2 Pgtl Crv Taper Zmn Polyethe Sterl - [id number] Implanted:Qty: 1 on 03/15/2018 by Markos Bell MD at [facility] Explanted:Qty: 1 on 04/30/2018 at [facility] [id number] 05/08/2020 [id number] / / [id number] Insurance MEDICARE PART A & B [facility] & B [employer] Advance Directives * Full Code (Latest Code Status on File) Date Activated Date Inactivated Comments 03/15/2018 11:33 AM 04/30/2018 1:43 PM Care Teams Inside Sales Supervisor Relationship Specialty Start Date End Date Dav Jefferson MD [address] [place] [id number] PCP - General Internal Medicine 03/14/18
--- OUTSIDE RECORDS SUMMARY | 2025-07-14 12:44 | XMS_ITS | Data Portability ---
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 We reviewed the x-rays together on the computer with chronic changes, but no acute osseous findings. He does have some soft tissue swelling and slight bursal effusion. He will continue to ice and rest. He was given an Mark bandage for light compression. He will continue with activity modification for a few days. I would expect symptoms to slowly improve. His triceps was intact although tender. We will watch this over the next few weeks. He also has arthritis in the left shoulder but only has mild symptoms. We discussed options in the future if symptoms worsen. He would like to just monitor his shoulder. Patient was seen and evaluated by Kodak Ferguson PA-C in indirect conjunction with Dr. Harding. The provider agrees with the history, physical examination, recommended tests/diagnostic imaging, and treatment plan. [email or web address] Not available 10/22/2024 13:47:32 11/05/2024 11/05/2024 Joseluis report significant improvement since his last visit. He feels he is making steady progress. He only has slight residual discomfort. With his current improvement he will monitor symptoms and follow-up on an as-needed basis. He can call and be seen for any concerns. All questions answered to his satisfaction. Patient was seen and evaluated by Kodak Freguson PA-C in indirect conjunction with Dr. Harding. The provider agrees with the history, physical examination, recommended tests/diagnostic imaging, and treatment plan. 10/22/2024 EDGARDO: Joseluis has right elbow contusion and strain to the triceps. We reviewed the x-rays together on the computer with chronic changes, but no acute osseous findings. He does have some soft tissue swelling and slight bursal effusion. He will continue to ice and rest. He was given an Mark bandage for light compression. He will continue with activity modification for a few days. I would expect symptoms to slowly improve. His triceps was intact although tender. We will watch this over the next few weeks. He also has arthritis in the left shoulder but only has mild symptoms. We discussed options in the future if symptoms worsen. He would like to just monitor his shoulder. Patient was seen and evaluated by Kodak Ferguson PA-C in indirect conjunction with Dr. Harding. The provider agrees with the history, physical examination, recommended tests/diagnostic imaging, and treatment plan. [email or web address] Not available 11/05/2024 16:40:40 11/21/2024 11/21/2024 Impression: 69-year-old sywmf-cndo-sqcaqq nt man with aseptic olecranon bursitis of RIght Elbow with Left shoulder GH arthritis Plan: I had a nice discussion with the patient today regarding the history, physical exam, imaging findings, and my diagnosis of aseptic olecranon bursitis. I explained the etiology, prognosis and natural history of this clinical entity. I explained that this condition is most consistent with the inflammatory and noninfective form of olecranon bursitis. I recommend simple watchful waiting, activity modification, and symptomatic treatment as needed. I did discuss a period of elbow rest with splinting, but they declined that today. I also discussed icing and anti-inflammatory medications as needed. I do not recommend routine aspiration or injection of corticosteroid given the very serious potential risk for persistent drainage or infection an elbow pad was provided. Additionally I did discuss treatment options with respect to his left shoulder glenohumeral arthritis. Treatment option include living with the symptoms, nonoperative management and surgical intervention. Given his function is 95% the patient is content with his current function. Therefore I advised him to just do activity modification and maximize nonoperative management. Surgical intervention would be in the form of a left anatomic total shoulder replacement. We will see the patient back in 6 weeks for repeat evaluation regarding the contusion and fluid collection of his elbow. At the conclusion of the visit, the patient verbally acknowledged that I answered all of their questions satisfactorily. [email or web address] Not available 12/02/2024 13:30:17 01/02/2025 01/02/2025 Impression: 69-year-old qerae-zbug-sxzrln nt man with aseptic olecranon bursitis of RIght Elbow with Left shoulder GH arthritis PLAN: Findings were discussed in detail the patient today. With respect to his olecranon bursitis that is resolving I recommended conservative treatment elbow resting and avoiding provocative irritation of the elbow. We will hold off on any aspirations. Additionally with respect to his left shoulder he is currently feeling well should he have any problems or concerns briefly discussed treatment options which include living with the symptoms, nonoperative management in the form of activity modification corticosteroid injections and then surgical intervention be in the form of anatomic total shoulder replacement. This point patient may follow-up on an as-needed basis all questions were answered to his satisfaction. He was in agreement this plan. PRIOR AR 11-21-24 I had a nice discussion with the patient today regarding the history, physical exam, imaging findings, and my diagnosis of aseptic olecranon bursitis. I explained the etiology, prognosis and natural history of this clinical entity. I explained that this condition is most consistent with the inflammatory and noninfective form of olecranon bursitis. I recommend simple watchful waiting, activity modification, and symptomatic treatment as needed. I did discuss a period of elbow rest with splinting, but they declined that today. I also discussed icing and anti-inflammatory medications as needed. I do not recommend routine aspiration or injection of corticosteroid given the very serious potential risk for persistent drainage or infection an elbow pad was provided. Additionally I did discuss treatment options with respect to his left shoulder glenohumeral arthritis. Treatment option include living with the symptoms, nonoperative management and surgical intervention. Given his function is 95% the patient is content with his current function. Therefore I advised him to just do activity modification and maximize nonoperative management. Surgical intervention would be in the form of a left anatomic total shoulder replacement. We will see the patient back in 6 weeks for repeat evaluation regarding the contusion and fluid collection of his elbow. At the conclusion of the visit, the patient verbally acknowledged that I answered all of their questions satisfactorily. Not available 01/02/2025 10:38:49 Plan of Treatment Reminders Order Date Submit Date Provider Last Modified By Organization Details Last Modified Time Details Appointments None record ed. Lab None record ed. Referral None record ed. Procedures None record ed. Surgeries None record ed. Imaging XR, should er, 2 or more view 025 10/22/19 25 [email or web address] 1 [facility], [address], [place], [address], 5 09:54:28 XR, elbow, 3 or more view 025 10/22/19 25 [email or web address] 1 [facility], [address], [place], [address], 5 09:54:28 Medication Orders None record ed. Patient TargetsNo targets recorded. Patient Instructions Encounter Date Encounter Id Patient Instructions Last Modified By Organization Details Last Modified Time 10/22/2024 [id number] views of the r ight elbow were obtained in the [place] office on 10/22/2024 including AP lateral and oblique. X-rays demonstrated minor degenerative changes with spurring at the tip of the olecranon and coracoid. No joint effusion. No obvious fracture. Small calcifications in the soft tissue which are known and chronic. Radiographs: 4 Views of the Left shoulder were obtained in the [place] office on 10/22/2024 including AP, Grashey, Y and axillary views. X-rays demonstrated normal bony mineralization. No significant degenerative changes in the AC joint with no widening. . Glenohumoral joint space Significantly narrowed withenthesophytes and degenerative changes in the humeral head. No evidence of acute injury or fracture. Impression: Osteoarthritis left shoulder Interpretation by: JERMAIN [email or web address] Not available 10/22/2024 13:49:43 11/05/2024 [id number] views of the r ight elbow were obtained in the [place] office on 10/22/2024 including AP lateral and oblique. X-rays demonstrated minor degenerative changes with spurring at the tip of the olecranon and coracoid. No joint effusion. No obvious fracture. Small calcifications in the soft tissue which are known and chronic. Radiographs: 4 Views of the Left shoulder were obtained in the [place] office on 10/22/2024 including AP, Grashey, Y and axillary views. X-rays demonstrated normal bony mineralization. No significant degenerative changes in the AC joint with no widening. . Glenohumoral joint space Significantly narrowed withenthesophytes and degenerative changes in the humeral head. No evidence of acute injury or fracture. Impression: Osteoarthritis left shoulder Interpretation by: Kodak Ferguson PA-C Not available 11/05/2024 11:47:14 11/21/2024 [id number] Imaging: X-ray LEFT shoulder, independent interpretation of AP and Axillary views by me show: located glenohumeral joint with moderate glenohumeral arthritis, bone on bone, osteophytes, sclerosis, and cysts. The glenoid has Walch B2 wear pattern with significant posterior subluxation. Imaging: RIGHT elbow three view radiographs including AP, oblique, and lateral views were reviewed with the patient, and independently interpreted by me as demonstrating a concentrically reduced ulnohumeral joint and radiocapitellar joint without any evidence of fracture, dislocation, arthritis, calcification, joint effusion, or other acute osseous abnormalities. Not available 12/02/2024 13:30:56 Reason for Referral None Reported. Problems Name Problem SNOMED Code Status Onset Date Resolution Date Notes Provider Name and Address Organization Details Recorded Time Contusion of right elbow 3136405180844 9103 Active [address], [place], [address] , [place] [facility] 13:44:40 Strain of triceps brachii muscle 524658203 Active [address], [place], [address] , [place] [facility] 5 13:45:05 Osteoarthr itis of joint of left shoulder region 5609275631026 08 Active 2024 KODAK FERGUSON PA-C [address], [place], [address] , [place] [facility] 5 13:45:23 Pain of elbow region 12327797 Active 2024 KODAK FERGUSON PA-C [address], [place], [address] , [place] [facility] 5 11:47:14 Pain of left shoulder region Active 2024 KODAK FERGUSON PA-C [address], [place], [address] , [place] [facility] 5 11:47:14 Arthritis of left glenohumer al joint 9031986404308 100 Active 2024 Josiah Harding MD [address], [place], [address] , [place] [facility] 13:31:12 Problem Notes None recorded. Procedures Surgical History Date Name Laterality Status Provider Name and Address Organization Details Recorded Time repair of tendo achilles completed Jorge Pinto [place] [facility] 10/22/2024 10:13:43 Gallbladder Surgery completed Jorge Pinto [place] [facility] 10/22/2024 10:13:50 Hernia Repair completed Jorge Pinto [place] [facility] 10/22/2024 10:13:57 Imaging Results None recorded. Procedure Notes None recorded. Medical Equipment None Reported. Allergies No known drug allergies Medications Name Sig Start Date Stop Date Status Note LastModified by Organization Details LastModified Time atorvastatin 40 mg tablet active Not Available Not Available Not Available prednisone 10 mg tablet active Not Available Not Available No t Available escitalopram 20 mg tablet active Not Available Not Available Not Available aspirin active Not Available Not Avail able Not Available Vitamin D3 active Not Available Not Av ailable Not Available Eliquis 5 mg tablet active Not Available Not Available Not Available Vitals Date Recorded Body height Body mass index (BMI) Body weight Provider Name and Address Organization Details Last Updated DateTime 10/22/2024 177.8 cm 25.8 kg/m2 88341.63 g Jorge Pinto [place] [facility] 10/22/2024 10:12:28 Date Recorded Body height Provider Name an d Address Organization Details Last Updated DateTime 11/05/2024 177.8 cm Heide Correa [place] [facility] 11/05/2024 08:42:00 Social History None recorded. Functional Status Question Answer Note LastModified by Organizat ion Details LastModified Time How many times per week do you consume alcohol? 8-10 per week [email or web address] Information not available 10/22/2024 Do you use any illicit or recreational drugs? No [email or web address] Information not available 10/22/2024 Do you or have you ever used any other forms of tobacco or nicotine? No [email or web address] Information not available 10/22/2024 What is your level of alcohol consumption? Heavy [email or web address] Information not available 10/22/2024 Mental Status None recorded. Family History Relationship Description Onset Age of this Age Resolved Age Notes LastModified by Organization Details LastModified Time Mother Arthritis [email or web address] Not avai lable 10/22/2024 10:13:30 Medical History Condition Response Cancer Y Bleeding Disorder Y Hypertension Y Past Encounters Encounter ID Performer Location Encounter Start Date Encounter Closed Date Diagnosis/Indication Diagnosis SNOMED-CT Code Diagnosis ICD10 Code Diagnosis IMO Codes Diagnosis Note [id number] JERMAIN IQBAL [facility] [address] [place] [address] 10/22/2024 09:42:25 10/22/2024 10:44:09 Pain of elbow region 17622758 M25.521 089096 Pain of le ft shoulder region 0733828625 M25.512 47435723 Contusion of right elbow 1699414672 0110163 S50.01XA 550748 Strain of triceps brachii muscle 503561374 S46.311A 73446267 Osteoarthr itis of joint of left shoulder region 2038638790 48144 M19.136 [id number] KODAK FERGUSON PA-C [facility] [place] [address] [facility] [address] [place] [address] 11/05/2024 08:21:12 11/05/2024 09:06:12 Pain of elbow region 68631849 M25.521 673024 Pain of le ft shoulder region 4459223202 M25.512 84032190 Contusion of right elbow 3597463013 9473016 S50.01XA 872071 Strain of triceps brachii muscle 844171518 S46.311A 16359623 Osteoarthr itis of joint of left shoulder region 0125511406 53652 M19.036 [id number] Josiah Harding MD [address] [address] 11/21/2024 13:36:23 11/21/2024 14:49:20 Contusion of right elbow 6124733430 3389978 S50.01XA 231022 Arthritis of left glenohumeral joint 9064044531 727084 M19.012 [id number] [facility] [address] [place] [address] 01/02/2025 09:40:06 01/02/2025 10:23:27 Contusion of right elbow 9460488719 8163945 S50.01XA 457606 Arthritis of left glenohumeral joint 2007959960 308789 M19.012 9747214106 Osteoarthr itis of joint of left shoulder region 9942708757 85348 M19.412 6191225 Health Concerns Section Related Observation LastModified by Organization Detai ls LastModified Time None Recorded Concern Status LastModified by Organization Details LastModified Time None Recorded Advance Directives Directive None Recorded Payers Insurance Date Sequence Insurance Name Policy Number Policy Vasquez Covered Member ID Vasquez Member ID Guarantor Name 12/30/2024 1 [place] Bob Frye [id number] Bob Frye 01/05/2025 2 [place] [id number] Bob Frye [id number] Bob Coope Notes Date Note Type Note Provider Name and Address Organization Details Recorded Time 10/22/2024 text/html ROS as noted in the HPI Patient is a 69-year-old male who presents today with right elbow pain and left shoulder discomfort. Unfortunately, he was getting into his car holding onto his dog's leash when he fell and landed on his forearm. He had pain and difficulty moving his elbow at the time. He has made some improvement but has ongoing discomfort. He also had some shoulder pain but not severe on the left. He was hoping symptoms and improve but they persisted. He presents today for orthopedic consultation. Prior injury to the right elbow from playing sports when he was younger. He has known calcifications and previous episodes of some bursitis.. [address], [place], [address], [place] [facility] 10/22/2024 13:50:19 11/05/2024 text/html ROS as noted in the HPI Joseluis returns today for follow-up of a contusion to his right upper arm. Overall he has made significant improvement since his last visit. He still has some slight residual discomfort resting his elbow on a hard surface, but otherwise very pleased with his progress. After his last visit, he did develop significant bruising in his upper arm and even into his forearm. This is since resolved. He has no pain in his left shoulder. 10/22/2024 EDGARDO:Patient is a 69-year-old male who presents today with right elbow pain and left shoulder discomfort. Unfortunately, he was getting into his car holding onto his dog's leash when he fell and landed on his forearm. He had pain and difficulty moving his elbow at the time. He has made some improvement but has ongoing discomfort. He also had some shoulder pain but not severe on the left. He was hoping symptoms and improve but they persisted. He presents today for orthopedic consultation. Prior injury to the right elbow from playing sports when he was younger. He has known calcifications and previous episodes of some bursitis.. [address], [place], [address], [place] [facility] 11/05/2024 16:41:35 11/21/2024 text/html ROS as noted in the HPI 69-year-old esptj-alah-olqxhtyt man with LEFT shoulder and right elbow pain. Previously saw Carlin Ferguson in the past for a right elbow contusion. He fell in his driveway approximately 1 month ago and was told to wear compression sleeve on he has some posterior swelling along his elbow that has slightly decreased in size. Of note he also has some Left glenohumeral arthritis which was found incidentally as result of workup for his right elbow effusion and injury In terms of his left shoulder he rates his pain at best 0 out of 10 at worst 7.5 out of 10 SANE score 95% Joseluis is retired he used to work for [employer] in [place]. Josiah Harding MD [address], [place], [address], [employer] [facility] 12/02/2024 13:31:24 01/02/2025 text/html ROS as noted in the [facility] Joseluis returns for follow-up regarding his left shoulder and right elbow pain. His left shoulder is largely improved feels good. His his elbow on the right is still bothering him though the swelling is largely improved. He did wear the Heelbo however it did cause an allergic reaction so he is since discontinued and use a compressive Mark wrap. Swelling is largely improved. He recently had positive EKG for atrial flutter is pending the results of the echocardiogram. Otherwise he feels good PRIOR AR 6[birth year]1-[birth year]30-year-old nmzom-grfp-gtafikqg man with LEFT shoulder and right elbow pain. Previously saw Carlin Ferguson in the past for a right elbow contusion. He fell in his driveway approximately 1 month ago and was told to wear compression sleeve on he has some posterior swelling along his elbow that has slightly decreased in size. Of note he also has some Left glenohumeral arthritis which was found incidentally as result of workup for his right elbow effusion and injury In terms of his left shoulder he rates his pain at best 0 out of 10 at worst 7.5 out of 10 SANE score 95% Joseluis is retired he used to work for [employer] in [place]. Josiah Harding MD [address], [place], [address], [place] [facility] 01/02/2025 10:39:03
--- OUTSIDE RECORDS SUMMARY | 2025-07-14 12:44 | XMS_ITS | Clinical Summary ---
Author Organization [facility] Address [address] [facility] [place] [address] Care Team Providers Care Sprinkler Fitter Name Role Phone Dav Jefferson MD Primary Care Provider [phone] Allergies Active Allergy Reactions Criticality Noted Date [...] 62 11/06/2023 8:51 AM EST Temperature 36.6 C (97.8 F) 04/19/2023 11:54 AM EDT Respiratory Rate 12 11/06/2023 8:51 AM EST [...] Risk Assessment 2018 COVID-19 Vaccine ( season) 2025 09/25/2022, 07/18/2021, 12/17/2020, Additional history exists Influenza Vaccine (#1) 2025 , 08/12/2021, 08/03/2021, Additional history exists DTap [...] Advance Directives For more information, please contact: [phone] Latest Code Status on File Code Status [...] following way: discussion with patient. Care Teams Sprinkler Fitter Relationship Specialty Start Date End Date Dav Jefferson MD [address] [place] [address], [place] [address] PCP - General Internal Medicine 07/27/16
--- OUTSIDE RECORDS SUMMARY | 2025-07-14 12:44 | XMS_ITS | Encounter Summary ---
Author Organization [facility] Address [address] [place] [address] Care Team Providers Care Histotechnologist Supervisor Name Role Phone Dav Jefferson MD Primary Care Provider [phone] Encounter Details Date Type Department Care Team (Late st Contact Info) Description 01/09/2024 Scanned Document [place] [facility], [address] [place] [address] Dav Jefferson MD [address] [place] [address] Social History Tobacco Use Types Packs/Day Years [...] on filedocumented in this encounter Care Teams Histotechnologist Supervisor Relationship Specialty Start Date End Date Dav Jefferson MD [address] [place] [address] PCP - General Internal Medicine 03/14/18 documented as of this encounter
--- OUTSIDE RECORDS SUMMARY | 2025-07-14 12:44 | XMS_ITS ---
Author Name [facility] Organization Unknown History of Medication Use Medication Directions Dispensed Refills Start Date End Date Stat us D3 2000 Softgel 02/19/2025 activ e Eliquis 2.5mg Tablet 02/19/2025 active predniSONE (DELTASONE) 10 mg tablet pack Take 4 tabs for 4 days, 3 tabs for 3 days, 2 tabs for 2 days, 1 tab for 1 day 11/27/2024 active atorvastatin (LIPITOR) 40 mg tablet TAKE ONE TABLET BY MOUTH EVERY DAY DIRECTED 08/14/2024 active Advil 200mg Caplet 12/29/2021 ac tive Areds 12/29/2021 active Atorvastatin calcium 10mg tablet 12/17/2017 active metoprolol tartrate (LOPRESSOR) 25 MG tablet Take by mouth 2 (two) times a day. 08/19/2016 active atorvastatin 40 mg tablet active Eliquis 5 mg tablet acti ve escitalopram 20 mg tablet active prednisone 10 mg tablet active Vitamin D3 active aspirin (CHARY ASPIRIN) 325 MG tablet Take 325 mg by mouth daily. active aspirin 325 mg Immediate Release tablet Take 1 tablet (325 mg total) by mouth daily. active atorvastatin (LIPITOR) tablet 20 mg Take 1 tablet (20 mg total) by mouth daily. active Cholecalciferol (Vitamin D3) 25 MCG (1000 UT) CAPS Take by mouth. active escitalopram oxalate (LEXAPRO) 10 mg tablet Take 15 mg by mouth daily. active metoPROLOL TARTRATE (LOPRESSOR) 25 MG tablet Take 25 mg by mouth 2 (two) times a day. active Allergies Allergen Reaction Severity Comment Documented Date Source Statu s ZOLPIDEM OTHER (SEE COMMENTS) made me inocente [facility] Problems Problem Status Onset Date Problem Type Date of Resolution Source Acute pharyngitis, unspecified active 2024-04-06 ProblemAct [facility] Malignant neoplasm of prostate active ProblemAct [facility] Unspecified acute conjunctivitis, right eye active 2024-04-02 ProblemAct [facility] Unspecified conjunctivitis active 2024-03-31 ProblemAct [facility] CAD (coronary artery disease) active 2020-12-09 ProblemAct [facility] Essential hypertension active 2018-03-16 ProblemAct [facility] Hemorrhage active 2018-03-15 ProblemAct [facility] 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 active 2024-11-27 ProblemAct [facility] Prostate cancer active 2023-11-[address] [facility] Atrial fibrillation (HC Code) (HC CODE) active 2018-03-16 ProblemAct [facility] Hyperlipidemia active 2020-12-09 ProblemAct [facility] Ingrowing nail active 2025-02-19 EncounterDiagnosisAct E[facility]_PODCRCT Porokeratoma active 2021-12-29 ProblemAct ENS_P ODCRCT Pain in left toe(s) active 2025-02-[address] [facility]_PODCRCT Tailor's bunion, left foot active 2021-12-29 ProblemAct [facility] Pain in left foot active 2021-12-29 ProblemAct [facility] Tinea unguium, onychomycosis active 2025-02-19 EncounterDiagnosisAct ENS_P ODCRCT Acquired hallux rigidus active 2021-12-29 ProblemAct [facility]_PODCRCT Cellulitis of left toe, paronychia active 2017-12-17 ProblemAct [facility]_PODCRCT Pain of left shoulder region active 2024-11-05 ProblemAct [facility]AONECT Arthritis of left glenohumeral joint active 2024-12-02 ProblemAct E[facility]_AONEC T Pain in elbow active 2024-11-05 ProblemAct [facility]_ [facility] Contusion of right elbow active 2024-10-22 ProblemAct [facility] Strain of triceps brachii muscle active 2024-10-22 ProblemAct [facility]ON[facility] Generalized abdominal pain active 2018-03-16 ProblemAct [facility] Encounters Encounter Type Encounter Reason Primary Diagnosis Location Date Ambulatory [facility] 12/29/2024 Ambulatory [facility] 12/03/2024 Ambulatory Contact dermatitis and other eczema due to other chemical products Contact dermatitis and other eczema due to other chemical products [facility] 11/27/2024 Ambulatory [facility] 11/21/2024 Ambulatory [facility] 11/21/2024 Ambulatory [facility] 11/21/2024 Ambulatory [facility] 10/23/2024 Ambulatory [facility] 10/22/2024 Ambulatory [facility] 10/22/2024 Ambulatory [facility] 10/22/2024 Ambulatory [facility] 10/22/2024 Ambulatory [facility] 10/22/2024 Ambulatory [facility] 10/22/2024 Ambulatory [facility] 10/22/2024 Ambulatory [facility] 03/31/2024 Ambulatory Malignant neoplasm of prostate Malignant neoplasm of prostate [facility] 02/08/2024 Ambulatory Malignant neoplasm of prostate Malignant neoplasm of prostate [facility] 01/02/2024 Ambulatory Malignant neoplasm of prostate Malignant neoplasm of prostate [facility] 12/26/2023 Ambulatory [facility] 12/12/2023 Ambulatory Malignant neoplasm of prostate Malignant neoplasm of prostate [facility] 12/05/2023 Ambulatory Malignant neoplasm of prostate Malignant neoplasm of prostate [facility] 11/28/2023 Ambulatory Malignant neoplasm of prostate Malignant neoplasm of prostate [facility] 11/21/2023 Ambulatory Malignant neoplasm of prostate Malignant neoplasm of prostate [facility] 11/14/2023 Ambulatory Malignant neoplasm of prostate Malignant neoplasm of prostate [facility] 11/06/2023 Ambulatory Malignant neoplasm of prostate Malignant neoplasm of prostate [facility] 11/06/2023 Ambulatory [facility] 09/24/2023 Ambulatory Personal history of colonic polyps [facility] 04/19/2023 Ambulatory Personal history of colonic polyps [facility] 01/15/2023 Care Team Organization Name Specialty Phone Email Start Date End [facility] 11/27/2024 [facility] NO PROVIDER Primary Care 03/31/2024 [facility] NO PROVIDER Primary Care 03/31/2024 [facility] RO Primary Care 10/1604/28/2025 [facility] 04/28/2025 [facility] HUMPHREYS Primary Care 09/24/2023 [facility] 08/17/2023 024 [facility] LI Primary Care 04/19/2004/19/2023 [facility] 2022 [facility] 03/17/2023 [facility] 02/13/2023 02/13/2023 [facility] APURVA HUMPHREYS Primary Care 01/15/2023 [facility]
--- OUTSIDE RECORDS SUMMARY | 2025-07-14 12:44 | XMS_ITS | Clinical Summary ---
Author Organization [address] Address [address] [place] [phone] Phone Care Team Providers Care Web Publisher Name Role Phone Referring, No Primary Care Provider Unavailabl e Medications predniSONE (DELTASONE) 10 mg tablet packIndications :contact dermatitis Take 4 tabs for 4 days, 3 tabs for 3 days, 2 tabs for 2 days, 1 tab for 1 day 30 tablet 11/27/2024 Active aspirin 325 mg Immediate Release tablet Take 1 tablet (325 mg total) by mouth daily. Active atorvastatin (LIPITOR) 40 mg tablet TAKE ONE TABLET BY MOUTH EVERY DAY DIRECTED 08/14/2024 Active escitalopram oxalate (LEXAPRO) 10 mg tablet Take 15 mg by mouth daily. Active Active Problems Problem Noted Date Diagnosed Date Allergic dermatitis due to other chemical produc t 11/27/2024 Prostate cancer (HC Code) 11/06/2023 CAD (coronary artery disease) 12/09/2020 Overview (11/27/2024): Last Assessment & Plan: With non obstructive lesions by CTA in 2017. No exertional symptoms. Will continue primary prevention. Will increase atorvastatin to 40mg daily. Hyperlipidemia 12/09/2020 Overview (11/27/2024): Last Assessment & Plan: Patient's LDL is well controlled on his current statin regimen. Continue current treatment plan. Atrial fibrillation (HC Code) 03/16/2018 Essential hypertension 03/16/2018 Hemorrhage 03/15/2018 Social History Tobacco Use Types Packs/Day Years Used Date Smoking Tobacco: Never Tobacco Cessation:Counseling Given: Not Answered Sex and Gender Information Value Date Recorded Sex Assigned at Not on file Legal Sex Male 7:27 AM EDT Gender Identity Not on file Sexual Orientation Not on file Plan of Treatment Health Maintenance Due Date Last Done Comments HIV screening 1966 Diabetes screening 1971 Hepatitis C screening 1971 Tetanus adult (Td q 10,TDAP once) 1973 Lipid disorder screening 1993 Colon cancer screening, Colonoscopy 1998 Pneumococcal Vaccine (50+ ye ars) (1 of 1 - PCV) 2003 Shingles vaccine (Shingrix) (1 of 2 - Shingrix (RZV) 2 Dose Standard Series) 2003 Influenza vaccine 05/15/2025 Covid-19 vaccine series (1 - 2023- season) 2025 RSV Immunization (1 - 1-dose 75+ series) 01/30/2028 Meningococcal B Vaccine Aged Out No l onger eligible based on patient's age to complete this topic Meningococcal Vaccine Aged Out No jake marija eligible based on patient's age to complete this topic Insurance MEDICARE [facility] MEDICARE [facility] Member Subscriber Plan / Payer (Ef fective 2018-Present) Name:SherlyanthonyBob Relation to Subscriber:Self Name:MelvaBob Payer ID:[id number] (NAIC) Group ID:[id number] Type:Not on file Address: [place] [id number] MEDICARE [facility] Care Teams Web Publisher Relationship Specialty Start Date End Date Referring, No PCP - General 11/27/24
--- OUTSIDE RECORDS SUMMARY | 2025-07-14 12:44 | XMS_ITS | Clinical Summary ---
Author Organization [address] [place] [address] [place] [phone] Phone Care Team Providers Care Thread Drawer Name Role Phone Dav Jefferson MD Primary Care Provider [phone] Allergies Active Allergy Reactions Criticality Noted Date Comments Zolpidem Tartrate 10/29/2024 Medications cholecalciferol (VITAMIN D-3) 25 mcg (1,000 unit) tablet Take 1 Tablet by mouth daily. Active vit C/E/Zn/coppr/nicolas tein/zeaxan (PRESERVISION AREDS-2 ORAL) Take 1 Tablet by mouth 2 times daily. Active escitalopram (LEXAPRO) 10 mg tablet Take 15 mg by mouth daily. Active atorvastatin (LIPITOR) 40 mg tablet TAKE ONE TABLET BY MOUTH EVERY DAY DIRECTED 30 tablet 5 5 Active apixaban (Eliquis) 5 mg tablet TAKE ONE TABLET BY MOUTH TWICE A DAY 60 tablet 5 5 Active flecainide (TAMBOCOR) 100 mg tablet Take 2 tablets (200 mg total) by mouth 1 (one) time each day if needed (For recurrence of atrial tachycardia, heart rate persistently greater than 100 bpm). 4 tablet 1 5 Active Active Problems Problem Noted Date Diagnosed Date Persistent atrial fibrillation (CMS/HCC V24, CMS /HCC V28) 02/10/2025 Overview (02/10/2025): History of atrial flutter 2013 in the preoperative setting. Developed well- tolerated persistent atrial fibrillation in 2024. Cardioverted to sinus rhythm in January 2025. Was planned for sotalol but bradycardic with a high vagal tone heart rates in 40s and 50s. Anticoagulant Eliquis. [id number] score is a 2 Assessment & Plan (02/25/2025 8:15 AM EDT): I had a thorough discussion with this gentleman and his family regarding ways to proceed. We talked about potentially treating the atrial fibrillation with only rate control and anticoagulation but he was not comfortable with the idea of permanent atrial fibrillation. I reviewed potential to use an atrial pacemaker and antiarrhythmic drug such as Multaq to maintain sinus rhythm. Also talked about pulm vein isolation procedure detail was 80% success rate and 1 to 5% risk of procedural complications. He wants to pursue the ablation and we will discuss whether he can come off of anticoagulants after the procedure depending on his Chadsvasc Score. I will see if we can induce atrial flutter given his previous episode back in 2013 but clinically we have only seen atrial fibrillation recently. He does have kardia all device will continue to monitor his rhythm let us know if he has conversion back to A-fib or atrial flutter. I discussed the risks of the procedure which include but are not limited to venous access complications, cardiac perforation and tamponad, stroke or NV related to catheter thrombus and injury to surrounding structures. Cryoballoon ablation may be preferred due to the high vagal tone. Hyperlipidemia 12/09/2020 Overview (10/29/2024): Last Assessment & Plan: Patient's LDL is well controlled on his current statin regimen. Continue current treatment plan. Assessment & Plan (12/12/2024 12:46 PM EST): Last lipid panel from January 2024 reviewed and under acceptable control. Continue atorvastatin as prescribed. CAD (coronary artery disease) 12/09/2020 Overview (10/29/2024): Last Assessment & Plan: With non obstructive lesions by CTA in 2016. No exertional symptoms. Will continue primary prevention. Will increase atorvastatin to 40mg daily. Assessment & Plan (02/10/2025 2:06 PM EDT): The patient does not have clinical coronary disease. He did have some calcification on CTA and is on atorvastatin. He is maintaining a stable weight and tries eat healthy. Assessment & Plan (12/12/2024 12:46 PM EST): Patient has a history of nonobstructive coronary artery disease as seen on cardiac CT in 2017 which demonstrated multiple non obstructive disease in the LAD, circumflex and RCA. He denies any signs or symptoms of coronary insufficiency. Aspirin has been discontinued in light of starting Eliquis. He will continue with atorvastatin as prescribed. Atrial flutter (CMS/HCC V24, CMS/HCC V28) 2020 Overview (10/29/2024): Last Assessment & Plan: No evidence of recurrent atrial flutter or AFib. Will continue clinial monitor. Assessment & Plan (01/20/2025 11:47 AM EDT): He has recurrent asymptomatic atrial flutter with normal heart rate by twelve- lead EKG. However Holter monitor showed slightly rapid heart rate. He tolerated well with low-dose metoprolol and heart rate was not slow. I will increase metoprolol to 50 mg daily. Due to significant sinus bradycardia previous office visit, there is a risk of profound sinus bradycardia after converting back to sinus rhythm. Waiting for EP consultation for ablation +/- pacemaker implantation. He has been tolerated Eliquis well without bleeding complications. Assessment & Plan (12/12/2024 12:46 PM EST): [...] Encounters Date Type Department Care Team Description 04/22/2025 Telephone [facility] [address] [place] [address] Za Quevedo NP from Last 3 Months Surgical History Surgery Date Site/Laterality Comments PROSTATECTOMY PROCEDURE:PROSTATECTOMY CHOLECYSTECTOMY PROCEDURE:LAPAROSCOPIC CHOLECYSTECTOMY ACHILLES TENDON SURGERY Left PROCEDURE:ACHILLES TENDON REPAIR HERNIA REPAIR Right PROCEDURE:INGUINAL HERNIA REPAIR COLONOSCOPY PROCEDURE:COLONOSCOPY COLONOSCOPY 10/31/2016 N/A PROCEDURE:COLONOSCOPY;COMMENT:Proce dure: COLONOSCOPY; Surgeon: Kodak Harry MD; Location: [facility]; Service: Gastroenterology; Laterality: N/A; COLONOSCOPY 04/19/2023 N/A PROCEDURE:COLONOSCOPY;COMMENT:Proce dure: COLONOSCOPY; Surgeon: Kodak Harry MD; Location: [facility]; Service: Gastroenterology; Laterality: N/A; CARDIOVERSION DONE ON 02/06/2025 AT [facility] W [facility] ABLATION AFIB ABLATION DONE ON 02/25/2025 AT [facility] Medical History Medical History Date Comments Prostate cancer (CMS/HCC V24 , [facility] V28) DX:Prostate cancer (HCC) HTN (hypertension) DX:HTN (hyper tension) Atrial fibrillation (CMS/HCC V24, [facility] V28) DX:Atrial fibrillation (HCC) History of DVT (deep vein [...] Value Date Recorded Sex Assigned at Male 02/24/2025 9:11 AM EDT Legal Sex Male 2:07 PM EST Gender Identity Not on file Sexual Orientation Not on file Obstetrics History Last Filed Vital Signs Vital Sign Reading Time Taken Comments Blood Pressure 94/60 04/01/2025 10:03 AM EDT Pulse 105 04/01/2025 10:03 AM EDT Temperature 37.1 C (98.7 F) 02/25/2025 6:53 AM EDT Respiratory Rate 14 02/25/2025 2:13 PM EDT Oxygen Saturation 98% 04/01/2025 10:03 AM EDT Inhaled Oxygen Concentration - - Weight 81.2 kg (179 lb) 04/01/2025 10:03 AM EDT Height 177.8 cm (5' 10 ) 04/01/2025 10:03 AM EDT Body Mass Index 25.68 04/01/2025 10:03 AM EDT Plan of Treatment Upcoming Encounters Date Type Department Care Team (Late st Contact Info) Description 07/28/2025 10:40 AM EDT Office Visit [facility] - [address] [place] [phone] Lucy Fry NP [address] [place] [address] [place] [id number] Health Maintenance Due Date Last Done Comments Colorectal Cancer Screening: Colonoscopy 1955 Zoster Vaccines (1 of 2) 01/30/1972 Cholesterol Screening (Lipid Panel) 09/13/2022 Falls Risk Assessment 09/13/2022 Hepatitis C Screening 09/13/2022 Social Influencers of Health Screening 09/13/2022 Medicare Annual Wellness Visit 01/27/2024 01/26/2023 Depression Screening 10/15/2024 COVID-19 Vaccine (7 - Pfizer risk season) 2025 06/20/2024, 07/13/2023, 09/25/2022, Additional history exists Influenza Vaccine (#1) 2025 , 07/13/2023, 08/08/2022, Additional history exists Hypertension/CHF/CAD Annual BMP Blood Test 02/24/2026 02/24/2025, 12/12/2024 DTaP,Tdap,and Td Vaccines (2 - Td or Tdap) 11/08/2027 11/08/2017 RSV Immunization Adult Patients (1 - 1-dose 75+ series) 01/30/2028 Pneumococcal Vaccine: 50+ Years Completed 11/14/2018, 07/23/2018, 11/08/2017 HIB Vaccines Aged Out No longer eligi [...] age to complete this topic Meningococcal B Vaccine Aged Out No l onger eligible based on patient's age to complete this topic RSV Immunization Patients Under 20 months Aged Out No longer eligible based on patient's age to complete this topic Varicella Vaccines Aged Out No longer eligible based on patient's age to complete this topic Procedures Procedure Name Priority Date/Time Associated Diagnosis Comments BASIC METABOLIC PANEL Routine 02/24/2025 8:10 AM EDT Atrial flutter, unspecified type (CMS/[facility] V24, CMS/[facility] V28) from Last 3 Months or Most Recently Relevant to Health Maintenance Results * (ABNORMAL) Basic metabolic panel (02/24/2025 8:10 AM EDT) Sodium 141 135 - 145 mmol/L LAB CHEMISTRY METHOD 02/24/2025 11:46 AM EDT [facility] Potassium 4.7 3.5 - 5.1 mmol/L LAB CHEMISTRY METHOD 02/24/2025 11:46 AM EDT [facility] Chloride 103 98 - 107 mmol/L LAB CHEMISTRY METHOD 02/24/2025 11:46 AM EDT [facility] CO2 31 24 - 32 mmol/L LAB CHEMISTRY METHOD 02/24/2025 11:46 AM EDT [facility] Anion Gap 7 5 - 14 LAB CHE[facility]STRY METHOD [facility] Glucose 102(H) 70 - 99 mg/dL LAB CHEMISTRY METHOD 02/24/2025 11:46 AM EDT [facility] BUN 16 9 - 20 mg/dL LAB CHEMISTRY METHOD 02/24/2025 11:46 AM EDT [facility] Creatinine 1.10 0.70 - 1.30 mg/dL LAB CHEMISTRY METHOD 02/24/2025 11:46 AM EDT [facility] eGFR 71 >=60 mL/min/1. 73m2 LAB CHEMISTRY METHOD 02/24/2025 11:46 AM EDT [facility] Comment:Calculation based on the Chronic Kidney Disease Epidemiology Collaboration (CKD-EPI) equation refit without adjustment for race. BUN/Creatinine Ratio 14.5 12.0 - 20.0 LAB CHEMISTRY METHOD 02/24/2025 11:46 AM EDT [facility] Calcium 9.1 8.4 - 10.2 mg/dL LAB CHEMISTRY METHOD 02/24/2025 11:46 AM EDT [facility] Blood Venous blood specimen / Unknown Venipuncture / Unknown 02/24/2025 8:10 AM EDT 02/24/2025 8:10 AM EDT us Milo Cui MD LAB BLOOD ORDERABLES Final Res ult [facility] [address] [place] [address], [place] [phone] from Last 3 Months or Most Recently Relevant to Health Maintenance Insurance MEDICARE [facility] Care Teams Thread Drawer Relationship Specialty Start Date End Date Dav Jefferson MD [address] [place] [id number] PCP - General Internal Medicine 12/12/24
--- OUTSIDE RECORDS SUMMARY | 2025-07-14 12:44 | XMS_ITS | Encounter Summary ---
Author Organization [facility] Address [address] [place] [address] Care Team Providers Care Strategic Account Executive Name Role Phone Dav Jefferson MD Primary Care Provider [phone] Encounter Details Date Type Department Care Team (Late st Contact Info) Description 02/08/[address] [facility] [address] [facility] [address] [place] [address] Provider, MD Sabine [address] [place] [address] Social History Tobacco Use Types Packs/Day Years [...] on filedocumented in this encounter Care Teams Strategic Account Executive Relationship Specialty Start Date End Date Dav Jefferson MD [address] [place] [address] PCP - General Internal Medicine 03/14/18 documented as of this encounter
== END 2025-07-14 11:59 | disposition home or self-care (01) ==
LOC: HO.HUSH 11:17
PROVIDERS: PCP Internal Medicine; Visit Provider Urology
DX: C61 Malignant neoplasm of prostate (principal); R97.21 Rising PSA following treatment for malignant neoplasm of prostate; Z19.1 Hormone sensitive malignancy status
CPT/HCPCS: 99213; G2211

== ENCOUNTER → 2025-07-14 11:17 | Outpatient (BNVA) | payer MEDICARE, BC, SELFPAY | PROVIDERS: PCP Internal Medicine; Visit Provider Urology | DX: R97.21 Rising PSA following treatment for malignant neoplasm of prostate (principal); C61 Malignant neoplasm of prostate; Z19.1 Hormone sensitive malignancy status | CPT/HCPCS: 99212 ==